=== PATIENT | female | born 1935 | race Hispanic/Latino ===

== ENCOUNTER 2018-01-19 16:46 | Inpatient (IN) | payer OTHER, MEDICARE ==
[2018-01-19] MEDS ORDERED: NACL 0.9% 500 ML 500 ML IV ONE (17:03)
[2018-01-19] MEDS ORDERED: KETALAR IV ONE (17:03)
[2018-01-19] MEDS ORDERED: ZEMURON IV ONE ×2 (17:05→17:08)
[2018-01-19] MEDS ORDERED: KETALAR ONE (17:05)
[2018-01-19] MEDS ORDERED: NACL 0.9% 1000 ML IV ONE ×2 (17:07→21:00)
[2018-01-19] MEDS ORDERED: D50W (25GM) Syringe IV ONE (17:21)
[2018-01-19] MEDS ORDERED: D50W (25GM) Vial IV ONE (17:26)
[2018-01-19] MEDS ORDERED: SUBLIMAZE IV ONE (17:33)
--- NOTE | 2018-01-19 17:36 | Emergency Department Report ---
ED General Adult HPI - General Chief complaint: Altered Mental Status Stated complaint: AMS Time Seen by Provider: 01/19/18 17:30 Source: EMS (ems notes not available at time of chart dictation. Verbal report received from EMS), RN notes reviewed, old records reviewed Mode of arrival: Stretcher Limitations: Altered Mental Status, Physical Limitation - History of Present Illness Initial comments: This is an 82-year-old female. She is previously unknown to this provider. Past medical history includes functional quadriplegia, diabetes, hypertension, high cholesterol, renal insufficiency, symptom of an appropriate antibiotic hormone secretion, rhabdomyolysis. Recently admitted to this hospital for colitis and pneumonia. Was discharged with Levaquin and metronidazole. Patient is brought to the hospital today by EMS for weakness and not breathing. EMS reported that the patient was breathing agonally in the field, and patient also was hypoglycemic. Patient received bag valve mask ventilation and oral airway. Upon arrival to the ER, the patient was obtunded and not protecting her airway. An emergent right sided external jugular IV was placed by myself, Accu-Chek was less than 40, patient given 1 amp of D50, still altered , and therefore intubated emergently for airway protection using rapid sequence techniques. Patient also hypotensive initially, blood pressure in the 70s, and required emergent administrative consent for central line placement which was performed using ultrasound guidance. No advanced directives were available. Patient will be treated along with sepsis pathway, she'll be started empirically on vancomycin and cefepime. She will also be started empirically on appropriate bolus of IV fluids, and she' ll be ventilated with a lung protective strategy. The critical care physician, Dr. Fried was informed, and he will follow in consultation. As a fourth generation cephalosporin, cefepime is structurally dissimilar to penicillin or first generation cephalosporin, and is statistically unlikely to induce anaphylaxis. -: unknown Consistency: constant Improves with: none Worsens with: none Associated Symptoms: confusion, weakness - Related Data Home Medications Medication Instructions Recorded Confirmed Last Taken Cholecalciferol (Vitamin D3) 50,000 unit PO QMONTH 08/07/13 12/11/17 07/13/13 [Vitamin D3] Metformin HCl [metFORMIN ER] 500 mg PO DAILY 08/07/13 12/11/17 08/07/13 08:00 Ranitidine HCl [Zantac] 150 mg PO BID 08/07/13 12/11/17 Unknown Previous Rx's Medication Instructions Recorded Last Taken Type Acetaminophen [Acetaminophen TAB] 650 mg PO Q4H PRN #30 tablet 12/15/17 Unknown Rx Aspirin [Aspirin TAB] 325 mg PO DAILY #30 12/15/17 Unknown Rx Cyanocobalamin (Vitamin B-12) 1,000 mcg PO DAILY #30 12/15/17 Unknown Rx [Vitamin B-12] Levofloxacin [Levaquin TAB] 500 mg PO QDAY #7 tablet 12/15/17 Unknown Rx Loratadine [Claritin] 10 mg PO DAILY #30 12/15/17 Unknown Rx Mometasone Furoate [Nasonex] 2 spray NS DAILY #1 unit 12/15/17 Unknown Rx Simvastatin [Zocor TAB] 40 mg PO QHS #30 12/15/17 Unknown Rx metroNIDAZOLE [Flagyl TAB] 500 mg PO Q8HR #56 tablet 12/15/17 Unknown Rx Allergies Allergy/AdvReac Type Severity Reaction Status Date / Time Penicillins Allergy Anaphylaxis Verified 08/07/13 18:32 sulfamethoxazole Allergy Unknown Verified 10/30/13 04:34 [From Bactrim] trimethoprim [From Bactrim] Allergy Unknown Verified 10/30/13 04:34 ED Review of Systems ROS: Stated complaint: AMS Other details as noted in HPI Comment: Unobtainable due to pts medical conditions ED Past Medical Hx - Past Medical History Hx Hypertension: Yes Hx Diabetes: Yes Hx Arthritis: Yes - Surgical History Hx Cholecystectomy: Yes Additional Surgical History: ABD hernia repair, hysterectomy - Social History Smoking Status: Unknown if ever smoked Substance Use Type: None - Medications Home Medications: Home Medications Medication Instructions Recorded Confirmed Last Taken Type Cholecalciferol (Vitamin D3) 50,000 unit PO QMONTH 08/07/13 12/11/17 07/13/13 History [Vitamin D3] Metformin HCl [metFORMIN ER] 500 mg PO DAILY 08/07/13 12/11/17 08/07/13 08:00 History Ranitidine HCl [Zantac] 150 mg PO BID 08/07/13 12/11/17 Unknown History Acetaminophen [Acetaminophen TAB] 650 mg PO Q4H PRN #30 tablet 12/15/17 Unknown Rx Aspirin [Aspirin TAB] 325 mg PO DAILY #30 12/15/17 12/11/17 Unknown Rx Cyanocobalamin (Vitamin B-12) 1,000 mcg PO DAILY #30 12/15/17 12/11/17 Unknown Rx [Vitamin B-12] Levofloxacin [Levaquin TAB] 500 mg PO QDAY #7 tablet 12/15/17 Unknown Rx Loratadine [Claritin] 10 mg PO DAILY #30 12/15/17 12/11/17 Unknown Rx Mometasone Furoate [Nasonex] 2 spray NS DAILY #1 unit 12/15/17 12/11/17 Unknown Rx Simvastatin [Zocor TAB] 40 mg PO QHS #30 12/15/17 12/11/17 Unknown Rx metroNIDAZOLE [Flagyl TAB] 500 mg PO Q8HR #56 tablet 12/15/17 Unknown Rx ED Physical Exam - General Limitations: Altered Mental Status, Physical Limitation, Other General appearance: obtunded - Eye Eye exam: Absent: nystagmus - ENT ENT exam: Present: mucous membranes dry - Neck Neck exam: Present: normal inspection - Respiratory Respiratory exam: Present: respiratory distress, rhonchi - Cardiovascular Cardiovascular Exam: Present: normal rhythm, tachycardia - GI/Abdominal GI/Abdominal exam: Present: soft, other (scaphoid abdomen is noted.). Absent: distended, tenderness, guarding, rebound, rigid - Rectal Rectal exam: Present: other (sacral ulcers noted) - Extremities Exam Extremities exam: Present: other (edema noted to the bilateral upper extremities. Calcaneal ulcers noted. Ecchymosis noted on the upper extremities ). Absent: normal inspection - Back Exam Back exam: Absent: paraspinal tenderness - Neurological Exam Neurological exam: Present: altered - Psychiatric Psychiatric exam: Present: other (patient nonverbal) - Skin Skin exam: Present: ecchymosis ED Course Vital Signs 01/19/18 01/19/18 01/19/18 16:53 16:59 17:00 Temperature Pulse Rate 126 H 119 H Respiratory 12 14 Rate Blood Pressure 118/97 73/37 73/37 O2 Sat by Pulse 80 L 93 Oximetry 01/19/18 01/19/18 01/19/18 17:12 17:15 17:16 Temperature Pulse Rate 97 H 110 H Respiratory 16 14 Rate Blood Pressure 44/20 O2 Sat by Pulse Oximetry 01/19/18 01/19/18 01/19/18 17:23 17:30 17:45 Temperature Pulse Rate 105 H 107 H 109 H Respiratory 14 13 Rate Blood Pressure 52/25 52/25 52/25 O2 Sat by Pulse 100 100 Oximetry 01/19/18 01/19/18 01/19/18 17:55 18:00 18:15 Temperature 99.1 F Pulse Rate 114 H 113 H Respiratory 14 14 Rate Blood Pressure 112/67 118/69 O2 Sat by Pulse Oximetry 01/19/18 01/19/18 01/19/18 18:30 18:45 19:00 Temperature Pulse Rate 113 H 101 H 106 H Respiratory 14 14 14 Rate Blood Pressure 114/71 87/42 95/48 O2 Sat by Pulse Oximetry 01/19/18 19:15 Temperature Pulse Rate 106 H Respiratory 14 Rate Blood Pressure 95/52 O2 Sat by Pulse Oximetry - Reevaluation(s) Reevaluation #1: 01/19/18 18:27 Found to be hypokalemic, hypomagnesemic, with elevated lactic acid. Electrolyte replacement has been ordered. Reevaluation #2: 01/19/18 18:40 Blood pressure improved with IV fluids, has not required norepinephrine as of yet. Dr LAMB ACCEPTS PATIENT TO THE MEDICAL SERVICE. - Central Line Placement Left IJ Consent Obtained: emergent situation Time Out Performed: Yes Patient Placed on Monitor/Pulse Ox: Yes MD Prep: mask, gown, gloves Central Line Prep: Chlorhexidine scrub, sterile drapes applied Ultrasound Used for Placement: Yes Central Line Lumen Inserted: triple Bloods Obtained for Lab: No Central Line Position: good blood return, all ports aspirated, flus, sutured in place with 2-0 Dressing Applied: sterile gauze/tape Patient Tolerated Procedure: well - EJ/Peripheral Line Neck R Time Out Performed: Yes Indications: nurses unable to establis Skin Cleansed in Sterile Fashion: Yes Size: 20 Dressing Placed: Tegaderm Patient Tolerated Procedure: well - Intubation Time Out Performed: Yes Sedative: Ketamine Mg Given: 100 Paralytic: Rocuronium Laryngoscope: Prince Size: 3 ET Tube Size: 7.5 Tube Secured Location: teeth Tube Placement Confirmation: visualized tube passing t Patient Tolerated Procedure: well Intubation Complications: none Additional Comments: Prior to intubation, patient is placed on a nasal cannula at 15 L/m. Received [id number] ventilation. Intubated using direct laryngoscopy and rapid sequence intubation with 1 attempts, no difficulty, no obvious complications. ED Medical Decision Making - Lab Data Result diagrams: 01/19/18 17:40 01/19/18 17:40 Vital Signs 01/19/18 01/19/18 01/19/18 16:53 16:59 17:00 Temperature Pulse Rate 126 H 119 H Respiratory 12 14 Rate Blood Pressure 118/97 73/37 73/37 O2 Sat by Pulse 80 L 93 Oximetry 01/19/18 01/19/18 01/19/18 17:12 17:15 17:16 Temperature Pulse Rate 97 H 110 H Respiratory 16 14 Rate Blood Pressure 44/20 O2 Sat by Pulse Oximetry 01/19/18 01/19/18 01/19/18 17:23 17:30 17:45 Temperature Pulse Rate 105 H 107 H 109 H Respiratory 14 13 Rate Blood Pressure 52/25 52/25 52/25 O2 Sat by Pulse 100 100 Oximetry 01/19/18 17:55 Temperature 99.1 F Pulse Rate Respiratory Rate Blood Pressure O2 Sat by Pulse Oximetry Lab Results 01/19/18 01/19/18 Range/Units 17:40 17:40 WBC 5.0 (4.5-11.0) K/mm3 RBC 2.91 L (3.65-5.03) M/mm3 Hgb 9.5 L (10.1-14.3) gm/dl Hct 29.1 L (30.3-42.9) % MCV 100 H (79-97) fl MCH 33 H (28-32) pg MCHC 33 (30-34) % RDW 17.0 H (13.2-15.2) % Plt Count 149 (140-440) K/mm3 Seg Neutrophils % Personal Vehicle Advisor VBG pH 7.447 H (7.320-7.420) - Radiology Data Radiology results: pending, report reviewed, image reviewed X-ray shows appropriate placement of endotracheal tube, central line, subacute rib fractures, lower lobe infiltrates. - Medical Decision Making Differential diagnosis, including but not limited to: Urinary tract infection, bacteremia, pneumonia, respiratory failure, functional quadriplegia, renal insufficiency Critical Care Time: Yes Critical care time in (mins) excluding proc time.: 60 Critical care attestation.: If time is entered above; I have spent that time in minutes in the direct care of this critically ill patient, excluding procedure time. ED Disposition Clinical Impression: Respiratory failure, SIRS (systemic inflammatory response syndrome), Dehydration, Hypomagnesemia, Hypokalemia Disposition: DC-09 OP ADMIT IP TO THIS HOSP Is pt being admited?: Yes Condition: Critical Referrals: PRIMARY CARE, [Primary Care Provider] - 3-5 Days
[2018-01-19 17:52] LABS: Hematocrit 29.1 % (30.3-42.9); Hemoglobin 9.5 gm/dl (10.1-14.3); Mean Corpuscular HGB Conc 33 % (30-34); Mean Corpuscular Hemoglobin 33 pg (28-32); Mean Corpuscular Volume 100 fl (79-97); Platelet Count 149 K/mm3 (140-440); Red Blood Count 2.91 M/mm3 (3.65-5.03)
[2018-01-19] MEDS ORDERED: fentaNYL DRIP Premix 2,000 MCG/100 ML BAG IV SCH (18:00)
[2018-01-19] MEDS ORDERED: VANCOMYCIN PHARMACY TO DOSE IV SCH ×2 (18:00→21:00)
[2018-01-19 18:10] LABS: Creatine Kinase MB 5.1 ng/mL (0.0-4.0)
[2018-01-19 18:11] LABS: INR 1.99 (0.87-1.13)
[2018-01-19 18:12] LABS: Alanine Aminotransferase 632 units/L (7-56); Albumin 1.5 g/dL (3.9-5); BUN/Creatinine Ratio 23; Blood Urea Nitrogen 21 mg/dL (7-17); Calcium 8.5 mg/dL (8.4-10.2); Hemolysis Index 7
[2018-01-19 18:24] LABS: ABG Base Excess 7.2 mmol/L (-2.0-3.0); ABG HCO3 31.3 mmol/L (20.0-26.0); ABG Methemoglobin 0.5 % (0.0-1.5); ABG Oxygen Saturation 99.6 % (95.0-99.0); ABG PCO2 42.4 mm Hg; ABG PH 7.486 pH Units (7.350-7.450)
[2018-01-19] MEDS ORDERED: MAGNESIUM SULFATE 2GM/50ML 2 GM/50 ML BAG IV ONE (18:25)
[2018-01-19 18:27] LABS: ABG PO2 420.1 mm Hg (80.0-90.0)
[2018-01-19 18:37] LABS: Chol/HDL Ratio 1.9 %
--- NOTE | 2018-01-19 18:53 | XRay Report ---
FINAL REPORT EXAM: XR CHEST 1V AP HISTORY: ett placement TECHNIQUE: Frontal supine portable chest x-ray was performed Comparison: 12/12, 10/23 FINDINGS: Patient is intubated with endotracheal tube tip approximately 2.8 centimeters above the kimo. Nasogastric tube is present with the tip at least in the region of the gastric body, not imaged. Left internal jugular central line is present with tip in the region of the brachiocephalic junction. Heart size is normal. There are multiple displaced right posterior rib fractures including through 8. There is bilateral basal consolidation and probable layering effusions. Possibly infiltrates. There is mild perihilar congestion suggestive of mild positive fluid balance. No pneumothorax is identified although the lung bases are clipped. The bones are osteopenic. IMPRESSION: Patient is intubated with endotracheal tube tip well above the kimo. Nasogastric tube is present with tip not imaged but at least in the gastric body. Left internal jugular central line tip projects at the brachiocephalic junction. Underlying pulmonary emphysema with mild interstitial edema/positive fluid balance. Bilateral basal consolidation/layering effusions and probable infiltrates. Multiple right age-indeterminate posterior lateral rib fractures 6--8 are offset, increased compared with the December 12 exam.
[2018-01-19] MEDS ORDERED: D5/0.45NS 1,000 ML IV SCH (19:00)
[2018-01-19] MEDS ORDERED: VANCOMYCIN/NS 1 GM/250 ML 1 GM/250 ML BAG IV ONE (19:00)
[2018-01-19 19:17] LABS: Bacteria,Urine 2+ /HPF (Negative); Bilirubin,Urine NEG (Negative); Blood,Urine SM (Negative); Color,Urine Amber (Yellow); Hyaline Casts,Urine 8 /LPF; Mucus,Urine 2+ /HPF; Protein,Urine <15 mg/dL mg/dL (Negative)
[2018-01-19 19:52] LABS: Total Cells Counted 100
[2018-01-19 19:53] LABS: Anisocytosis 1+; Basophils % (Manual) 0 % (0.0-1.8); Eosinophils % (Manual) 0 % (0.0-4.3); Platelet Estimate Consistent w Auto
[2018-01-19] MEDS: LEVOPHED DRIP 4 MG/NS 250 ML 4 MG/250 ML BAG IV SCH (20:18)
[2018-01-19] MEDS ORDERED: NACL 0.9% 1000 ML 1,000 ML ONE (20:30)
--- NOTE | 2018-01-19 20:31 | History and Physical Report ---
History of Present Illness Chief complaint: unresponsive History of present illness: 82 YO Female [facility] Resident with HTN, DM, HLD, SIADH, presents to ED for evaluation. Pt is stuporous on exam and unable to provide history. Pt history taken from medical record, ED Staff, and EMS. As per EMS, the patient was found to have agonal breathing in the field, as was transported to [facility] for further care and evaluation. Pt seen and evaluated in ED and found to be hypotensive with systolic BP in the 40's, secondary to Septic shock. Pt also found to have evidence of early shock liver, as well as elevated troponin which is suspected secondary to hypoperfusion. Pt found to be in acute respiratory failure. Pt intubated and placed on vent support. No further history is provided. Pt admitted to ICU. Pulmonary team consulted. Pt found to have poor prognosis. Past History Past Medical History: arthritis, diabetes, hypertension Past Surgical History: hysterectomy, hernia repair Social history: single. denies: smoking, alcohol abuse, prescription drug abuse Family history: no significant family history (reviewed) Medications and Allergies Allergies Allergy/AdvReac Type Severity Reaction Status Date / Time Penicillins Allergy Anaphylaxis Verified 08/07/13 18:32 sulfamethoxazole Allergy Unknown Verified 10/30/13 04:34 [From Bactrim] trimethoprim [From Bactrim] Allergy Unknown Verified 10/30/13 04:34 Home Medications Medication Instructions Recorded Confirmed Last Taken Type Cholecalciferol (Vitamin D3) 50,000 unit PO QMONTH 08/07/13 01/19/18 07/13/13 History [Vitamin D3] Ranitidine HCl [Zantac] 150 mg PO BID 08/07/13 01/19/18 Unknown History Aspirin [Aspirin TAB] 325 mg PO DAILY #30 12/15/17 01/19/18 Unknown Rx Cyanocobalamin (Vitamin B-12) 1,000 mcg PO DAILY #30 12/15/17 01/19/18 Unknown Rx [Vitamin B-12] Mometasone Furoate [Nasonex] 2 spray NS DAILY #1 unit 12/15/17 01/19/18 Unknown Rx Simvastatin [Zocor TAB] 40 mg PO QHS #30 12/15/17 01/19/18 Unknown Rx Acetaminophen [Tylenol] 650 mg PO Q4HR PRN 01/19/18 01/19/18 Unknown History Loratadine [Claritin] 10 mg PO QDAY 01/19/18 01/19/18 Unknown History Metformin HCl [Glucophage] 500 mg PO QDAY 01/19/18 01/19/18 Unknown History Active Meds: Active Medications Cefepime HCl 1 gm/ Sodium (Chloride) 20 mls @ 20 mls/10 min IV Q6HR RHINA; Protocol Fentanyl Citrate (Fentanyl Drip Premix) 2,000 mcg in 100 mls @ 2.948 mls/hr IV TITR RHINA; Protocol Norepinephrine (Levophed Drip 4 Mg/Ns 250 Ml) 4 mg in 250 mls @ 7.5 mls/hr IV TITR RHINA; Protocol Last Admin: 01/19/18 20:18 Dose: 2 mcg/min, 7.5 mls/hr Vancomycin HCl (Vancomycin/Ns 1 Gm/250 Ml) 1 gm in 250 mls @ 125 mls/hr IV ONCE ONE; Protocol Stop: 01/19/18 20:59 Dextrose/Sodium Chloride (D5/0.45ns) 1,000 mls @ 0 mls/hr IV DIRECT RHINA Last Admin: 01/19/18 18:46 Dose: 999 mls/hr Potassium Chloride (Kcl 20meq/100ml) 20 meq in 100 mls @ 100 mls/hr IV Q1H RHINA Stop: 01/19/18 22:59 Vancomycin HCl (Vancomycin Pharmacy To Dose) 1 each IV PKCONSULT RHINA Review of Systems ROS unobtainable: due to mental status Exam - Constitutional Vitals: Temp Pulse Resp BP Pulse Ox 99.1 F 106 H 14 95/52 100 01/19/18 17:55 01/19/18 19:15 01/19/18 19:15 01/19/18 19:15 01/19/18 17:30 General appearance: Present: severe distress, disheveled - EENT Eyes: Present: mydriasis ENT: poor dentition - Respiratory Respiratory effort: labored Respiratory: bilateral: diminished, rhonchi - Cardiovascular Rhythm: other (tacbhycardia) Heart Sounds: Present: S1 & S2. Absent: rub, click - Extremities Extremities: pulses symmetrical, No edema Peripheral Pulses: abnormal (capillary refill greater than 3.6 seconds) - Abdominal General gastrointestinal: Present: soft, non-tender, non-distended, normal bowel sounds Female genitourinary: Present: normal - Integumentary Integumentary: Present: clear, dry, pale, decreased turgor - Musculoskeletal Musculoskeletal: generalized weakness - Psychiatric Psychiatric: no intact judgment & insight, no memory intact - Neurologic Neurologic: no gait normal Results - Labs CBC & Chem 7: 01/19/18 17:40 01/19/18 17:40 Labs: Abnormal lab results 01/19/18 01/19/18 01/19/18 Range/Units 17:40 17:40 17:40 RBC 2.91 L (3.65-5.03) M/mm3 Hgb 9.5 L (10.1-14.3) gm/dl Hct 29.1 L (30.3-42.9) % MCV 100 H (79-97) fl MCH 33 H (28-32) pg RDW 17.0 H (13.2-15.2) % Seg Neuts % (Manual) 95.0 H (40.0-70.0) % Lymphocytes % (Manual) 3.0 L (13.4-35.0) % Lymphocytes # (Manual) 0.2 L (1.2-5.4) K/mm3 PT 23.9 H (12.2-14.9) Sec. INR 1.99 H (0.87-1.13) ABG pH (7.350-7.450) pH Units ABG pO2 (80.0-90.0) mm Hg ABG HCO3 (20.0-26.0) mmol/L ABG O2 Saturation (95.0-99.0) % ABG Base Excess (-2.0-3.0) mmol/L ABG Hemoglobin (12.0-16.0) gm/dl VBG pH (7.320-7.420) Potassium 2.7 L* (3.6-5.0) mmol/L Chloride 90.1 L (98-107) mmol/L Carbon Dioxide 32 H (22-30) mmol/L BUN 21 H (7-17) mg/dL Glucose 142 H (65-100) mg/dL POC Glucose (70-105) Lactic Acid (0.7-2.0) mmol/L Magnesium (1.7-2.3) mg/dL Total Bilirubin 1.30 H (0.1-1.2) mg/dL AST 1592 H (5-40) units/L ALT 632 H (7-56) units/L CK-MB (CK-2) (0.0-4.0) ng/mL CK-MB (CK-2) Rel Index (0-4) Troponin T (0.00-0.029) ng/mL Total Protein 3.5 L (6.3-8.2) g/dL Albumin 1.5 L (3.9-5) g/dL Cholesterol (50-199) mg/dL LDL Cholesterol Direct (50-130) mg/dL HDL Cholesterol (40-59) mg/dL Urine WBC (Auto) (0.0-6.0) /HPF 01/19/18 01/19/18 01/19/18 Range/Units 17:40 17:40 17:40 RBC (3.65-5.03) M/mm3 Hgb (10.1-14.3) gm/dl Hct (30.3-42.9) % MCV (79-97) fl MCH (28-32) pg RDW (13.2-15.2) % Seg Neuts % (Manual) (40.0-70.0) % Lymphocytes % (Manual) (13.4-35.0) % Lymphocytes # (Manual) (1.2-5.4) K/mm3 PT (12.2-14.9) Sec. INR (0.87-1.13) ABG pH (7.350-7.450) pH Units ABG pO2 (80.0-90.0) mm Hg ABG HCO3 (20.0-26.0) mmol/L ABG O2 Saturation (95.0-99.0) % ABG Base Excess (-2.0-3.0) mmol/L ABG Hemoglobin (12.0-16.0) gm/dl VBG pH 7.447 H (7.320-7.420) Potassium (3.6-5.0) mmol/L Chloride (98-107) mmol/L Carbon Dioxide (22-30) mmol/L BUN (7-17) mg/dL Glucose (65-100) mg/dL POC Glucose (70-105) Lactic Acid 4.50 H* (0.7-2.0) mmol/L Magnesium (1.7-2.3) mg/dL Total Bilirubin (0.1-1.2) mg/dL AST (5-40) units/L ALT (7-56) units/L CK-MB (CK-2) 5.1 H (0.0-4.0) ng/mL CK-MB (CK-2) Rel Index 4.9 H (0-4) Troponin T 0.187 H* (0.00-0.029) ng/mL Total Protein (6.3-8.2) g/dL Albumin (3.9-5) g/dL Cholesterol 42 L (50-199) mg/dL LDL Cholesterol Direct 5 L (50-130) mg/dL HDL Cholesterol 22 L (40-59) mg/dL Urine WBC (Auto) (0.0-6.0) /HPF 01/19/18 01/19/18 01/19/18 Range/Units 17:55 18:10 19:00 RBC (3.65-5.03) M/mm3 Hgb (10.1-14.3) gm/dl Hct (30.3-42.9) % MCV (79-97) fl MCH (28-32) pg RDW (13.2-15.2) % Seg Neuts % (Manual) (40.0-70.0) % Lymphocytes % (Manual) (13.4-35.0) % Lymphocytes # (Manual) (1.2-5.4) K/mm3 PT (12.2-14.9) Sec. INR (0.87-1.13) ABG pH 7.486 H (7.350-7.450) pH Units ABG pO2 420.1 H (80.0-90.0) mm Hg ABG HCO3 31.3 H (20.0-26.0) mmol/L ABG O2 Saturation 99.6 H (95.0-99.0) % ABG Base Excess 7.2 H (-2.0-3.0) mmol/L ABG Hemoglobin 11.0 L (12.0-16.0) gm/dl VBG pH (7.320-7.420) Potassium (3.6-5.0) mmol/L Chloride (98-107) mmol/L Carbon Dioxide (22-30) mmol/L BUN (7-17) mg/dL Glucose (65-100) mg/dL POC Glucose 114 H (70-105) Lactic Acid (0.7-2.0) mmol/L Magnesium (1.7-2.3) mg/dL Total Bilirubin (0.1-1.2) mg/dL AST (5-40) units/L ALT (7-56) units/L CK-MB (CK-2) (0.0-4.0) ng/mL CK-MB (CK-2) Rel Index (0-4) Troponin T (0.00-0.029) ng/mL Total Protein (6.3-8.2) g/dL Albumin (3.9-5) g/dL Cholesterol (50-199) mg/dL LDL Cholesterol Direct (50-130) mg/dL HDL Cholesterol (40-59) mg/dL Urine WBC (Auto) 44.0 H (0.0-6.0) /HPF 01/19/18 Range/Units Unknown RBC (3.65-5.03) M/mm3 Hgb (10.1-14.3) gm/dl Hct (30.3-42.9) % MCV (79-97) fl MCH (28-32) pg RDW (13.2-15.2) % Seg Neuts % (Manual) (40.0-70.0) % Lymphocytes % (Manual) (13.4-35.0) % Lymphocytes # (Manual) (1.2-5.4) K/mm3 PT (12.2-14.9) Sec. INR (0.87-1.13) ABG pH (7.350-7.450) pH Units ABG pO2 (80.0-90.0) mm Hg ABG HCO3 (20.0-26.0) mmol/L ABG O2 Saturation (95.0-99.0) % ABG Base Excess (-2.0-3.0) mmol/L ABG Hemoglobin (12.0-16.0) gm/dl VBG pH (7.320-7.420) Potassium (3.6-5.0) mmol/L Chloride (98-107) mmol/L Carbon Dioxide (22-30) mmol/L BUN (7-17) mg/dL Glucose (65-100) mg/dL POC Glucose (70-105) Lactic Acid (0.7-2.0) mmol/L Magnesium 0.20 L* (1.7-2.3) mg/dL Total Bilirubin (0.1-1.2) mg/dL AST (5-40) units/L ALT (7-56) units/L CK-MB (CK-2) (0.0-4.0) ng/mL CK-MB (CK-2) Rel Index (0-4) Troponin T (0.00-0.029) ng/mL Total Protein (6.3-8.2) g/dL Albumin (3.9-5) g/dL Cholesterol (50-199) mg/dL LDL Cholesterol Direct (50-130) mg/dL HDL Cholesterol (40-59) mg/dL Urine WBC (Auto) (0.0-6.0) /HPF Assessment and Plan - Patient Problems (1) Sepsis Current Visit: Yes Status: Acute Plan to address problem: IV antibiotic therapy, monitor uop q shift, IV pressor support, blood cultures, urinalysis, Chest X ray, serial lactic acid level The high probability of a clinically significant, sudden or life threatening deterioration of the [cardiac, renal, respiratory] system(s) required my full and direct attention, intervention and personal management. The aggregate critical care time was [65] minutes. This time is in addition to time spent performing reported procedures but includes the following: [x] Data Review and interpretation [x] Patient assessment and monitoring of vital signs [x] Documentation [x] Medication orders and management (2) UTI (urinary tract infection) Current Visit: Yes Status: Acute Qualifiers: Encounter type: initial encounter Plan to address problem: IV antibiotics, urinalysis, supportive care. (3) Acute respiratory failure Current Visit: Yes Status: Acute Qualifiers: Respiratory failure complication: hypoxia Qualified Code(s): J96.01 - Acute respiratory failure with hypoxia Plan to address problem: Pt intubated, on vent support, supplemental oxygen, nebulizer therapy, wean vent as tolerated, daily SBT, sedation holiday, Pulmonary consulted. (4) Shock liver Current Visit: Yes Status: Acute Plan to address problem: Treat sepsis, IVF resuscitation, repeat LFT in AM. (5) Encephalopathy Current Visit: Yes Status: Acute Plan to address problem: Toxic Encephalopathy: IVF resuscitation, treat sepsis, CT head when medically stable, neuro checks (6) DVT prophylaxis Current Visit: Yes Status: Acute
[2018-01-19] MEDS ORDERED: SODIUM CHLORIDE FLUSH SYRINGE 10 ML IV PRN (20:32)
[2018-01-19] MEDS ORDERED: VANCOMYCIN VIAL IV ONE (20:51)
[2018-01-19] MEDS: MAXIPIME 1 GM in NACL 0.9% 20 ML IV SCH (20:54)
[2018-01-19] MEDS ORDERED: VANCOMYCIN 1,250 MG in NACL 0.9% 250ML 250 ML IV ONE (22:00)
[2018-01-19] MEDS: SODIUM CHLORIDE FLUSH SYRINGE 10 ML IV SCH (22:53)
[2018-01-20] MEDS ORDERED: NACL 0.9% 1000 ML 0 ML ONE (00:12)
[2018-01-20] MEDS: KCL 20MEQ/100ML 20 MEQ/100 ML BAG IV SCH ×3 (00:20→03:25)
[2018-01-20] MEDS: SODIUM CHLORIDE FLUSH SYRINGE 10 ML IV SCH ×3 (01:56→21:49)
[2018-01-20] MEDS: MAXIPIME 1 GM in NACL 0.9% 20 ML IV SCH ×2 (02:00→05:49)
[2018-01-20 04:10] LABS: ABG Base Excess 0.5 mmol/L (-2.0-3.0); ABG HCO3 22.5 mmol/L (20.0-26.0); ABG Methemoglobin 0.4 % (0.0-1.5); ABG Oxygen Saturation 98.8 % (95.0-99.0); ABG PCO2 29.1 mm Hg; ABG PH 7.507 pH Units (7.350-7.450); ABG PO2 133.5 mm Hg (80.0-90.0)
[2018-01-20 04:43] LABS: Hematocrit 45.2 % (30.3-42.9); Hemoglobin 14.7 gm/dl (10.1-14.3); Mean Corpuscular HGB Conc 33 % (30-34); Mean Corpuscular Hemoglobin 33 pg (28-32); Mean Corpuscular Volume 101 fl (79-97); Red Blood Count 4.48 M/mm3 (3.65-5.03); Red Cell Distribution Width 17.3 % (13.2-15.2)
[2018-01-20 04:52] LABS: Platelet Count 73 K/mm3 (140-440)
[2018-01-20 05:00] LABS: BUN/Creatinine Ratio 26; Blood Urea Nitrogen 18 mg/dL (7-17); Calcium 7.8 mg/dL (8.4-10.2); Hemolysis Index 57
[2018-01-20 05:13] LABS: Alanine Aminotransferase 970 units/L (7-56)
[2018-01-20 06:06] LABS: Anisocytosis 1+; Band Neutrophils # (Manual) 0.3 K/mm3; Basophils % (Manual) 0 % (0.0-1.8); Eosinophils % (Manual) 0 % (0.0-4.3); Monocytes % (Manual) 0 % (0.0-7.3); Platelet Estimate Appears Decreased; Total Cells Counted 100
[2018-01-20] MEDS: LEVOPHED DRIP 4 MG/NS 250 ML 4 MG/250 ML BAG IV SCH ×5 (06:28→21:52)
--- NOTE | 2018-01-20 08:54 | Consultation ---
History of Present Illness Consult date: 01/20/18 Requesting physician: EVELYN HODGES Reason for consult: hypoxemia History of present illness: Patient is intubated, so all history comes from chart. Brought in from half-way secondary to altered mental status, hypotension and hypoxemia. Intubated in the ED and then central line placed there as well. CXR shows hyperinflation with left IJ placement. Bibasilar air space disease is also present but I cannot see a definite infiltrate. Patient had no white count on admission, did have a normal temp on admission but has since become hypothermic. Started on Vanc and Cefepime. UA is dirty, blood cultures are still pending. Patient is awake but not following commands. I do not know her baseline mental state. No family present at bedside and per IMS, multiple attempts were made to next of kin but no success. She is still on levophed at 15 mcgs. Past History Past Medical History: arthritis, diabetes, hypertension Past Surgical History: hysterectomy, hernia repair Social history: single. denies: smoking, alcohol abuse, prescription drug abuse Family history: no significant family history (reviewed) Medications and Allergies Allergies Allergy/AdvReac Type Severity Reaction Status Date / Time Penicillins Allergy Anaphylaxis Verified 08/07/13 18:32 sulfamethoxazole Allergy Unknown Verified 10/30/13 04:34 [From Bactrim] trimethoprim [From Bactrim] Allergy Unknown Verified 10/30/13 04:34 Home Medications Medication Instructions Recorded Confirmed Last Taken Type Cholecalciferol (Vitamin D3) 50,000 unit PO QMONTH 08/07/13 01/19/18 07/13/13 History [Vitamin D3] Ranitidine HCl [Zantac] 150 mg PO BID 08/07/13 01/19/18 Unknown History Aspirin [Aspirin TAB] 325 mg PO DAILY #30 12/15/17 01/19/18 Unknown Rx Cyanocobalamin (Vitamin B-12) 1,000 mcg PO DAILY #30 12/15/17 01/19/18 Unknown Rx [Vitamin B-12] Mometasone Furoate [Nasonex] 2 spray NS DAILY #1 unit 12/15/17 01/19/18 Unknown Rx Simvastatin [Zocor TAB] 40 mg PO QHS #30 12/15/17 01/19/18 Unknown Rx Acetaminophen [Tylenol] 650 mg PO Q4HR PRN 01/19/18 01/19/18 Unknown History Loratadine [Claritin] 10 mg PO QDAY 01/19/18 01/19/18 Unknown History Metformin HCl [Glucophage] 500 mg PO QDAY 01/19/18 01/19/18 Unknown History Active Meds: Active Medications Famotidine (Pepcid) 20 mg IV DAILY RHINA Norepinephrine (Levophed Drip 4 Mg/Ns 250 Ml) 4 mg in 250 mls @ 7.5 mls/hr IV TITR RHINA; Protocol Last Admin: 01/20/18 06:28 Dose: 12 mcg/min, 45 mls/hr Dextrose/Sodium Chloride (D5/0.45ns) 1,000 mls @ 0 mls/hr IV DIRECT RHINA Last Admin: 01/19/18 18:46 Dose: 999 mls/hr Cefepime HCl 1 gm/ Sodium (Chloride) 20 mls @ 20 mls/10 min IV Q12HR RHINA; Protocol Vancomycin HCl (Vancomycin/Ns 1 Gm/250 Ml) 1 gm in 250 mls @ 166.667 mls/hr IV Q24HR RHINA Sodium Chloride (Nacl 0.9% 1000 Ml) 1,000 mls @ 999 mls/hr IV BOLUS ONE Stop: 01/20/18 09:48 Sodium Chloride (Sodium Chloride Flush Syringe 10 Ml) 10 ml IV BID RHINA Last Admin: 01/20/18 01:56 Dose: 10 ml Sodium Chloride (Sodium Chloride Flush Syringe 10 Ml) 10 ml IV PRN PRN PRN Reason: LINE FLUSH Last Admin: 01/20/18 04:22 Dose: 10 ml Vancomycin HCl (Vancomycin Pharmacy To Dose) 1 each IV PKCONSULT [facility] Review of Systems ROS unobtainable: due to endotracheal tube, due to mental status Physical Examination Vital signs: Vital Signs BP 118/97 01/19/18 16:53 General appearance: alert, appears uncomfortable Eyes: non-icteric ENT: other (orally intubated, not on sedation) Neck: supple, no JVD Effort: mildly labored Ascultation: Bilateral: diminished breath sounds, rhonchi Percussion: Bilateral: not dull Tactile fremitus: Bilateral: normal Cardiovascular: other (tachycardia) Gastrointestinal: normoactive bowel sounds, soft Extremities: no edema Musculoskeletal: other (moving all ext but not purposeful movements) unable to assess Results - Laboratory Findings CBC and BMP: 01/20/18 04:02 01/20/18 04:02 ABG ABG pH 7.507 pH Units (7.350-7.450) H 01/20/18 03:50 ABG pCO2 29.1 mm Hg 01/20/18 03:50 ABG pO2 133.5 mm Hg (80.0-90.0) H 01/20/18 03:50 ABG O2 Saturation 98.8 % (95.0-99.0) 01/20/18 03:50 PT/INR, D-dimer PT 23.9 Sec. (12.2-14.9) H 01/19/18 17:40 INR 1.99 (0.87-1.13) H 01/19/18 17:40 Abnormal lab findings: Abnormal Labs 01/19/18 01/19/18 01/19/18 17:40 17:40 17:40 RBC 2.91 L Hgb 9.5 L Hct 29.1 L MCV 100 H MCH 33 H RDW 17.0 H Plt Count Seg Neuts % (Manual) 95.0 H Lymphocytes % (Manual) 3.0 L Lymphocytes # (Manual) 0.2 L PT 23.9 H INR 1.99 H ABG pH ABG pO2 ABG HCO3 ABG O2 Saturation ABG Base Excess ABG Hemoglobin VBG pH Sodium Potassium 2.7 L* Chloride 90.1 L Carbon Dioxide 32 H BUN 21 H Glucose 142 H POC Glucose Lactic Acid Calcium Magnesium Total Bilirubin 1.30 H AST 1592 H ALT 632 H Alkaline Phosphatase CK-MB (CK-2) CK-MB (CK-2) Rel Index Troponin T Total Protein 3.5 L Albumin 1.5 L Cholesterol LDL Cholesterol Direct HDL Cholesterol Urine WBC (Auto) 01/19/18 01/19/18 01/19/18 17:40 17:40 17:40 RBC Hgb Hct MCV MCH RDW Plt Count Seg Neuts % (Manual) Lymphocytes % (Manual) Lymphocytes # (Manual) PT INR ABG pH ABG pO2 ABG HCO3 ABG O2 Saturation ABG Base Excess ABG Hemoglobin VBG pH 7.447 H Sodium Potassium Chloride Carbon Dioxide BUN Glucose POC Glucose Lactic Acid 4.50 H* Calcium Magnesium Total Bilirubin AST ALT Alkaline Phosphatase CK-MB (CK-2) 5.1 H CK-MB (CK-2) Rel Index 4.9 H Troponin T 0.187 H* Total Protein Albumin Cholesterol 42 L LDL Cholesterol Direct 5 L HDL Cholesterol 22 L Urine WBC (Auto) 01/19/18 01/19/18 01/19/18 17:55 18:10 19:00 RBC Hgb Hct MCV MCH RDW Plt Count Seg Neuts % (Manual) Lymphocytes % (Manual) Lymphocytes # (Manual) PT INR ABG pH 7.486 H ABG pO2 420.1 H ABG HCO3 31.3 H ABG O2 Saturation 99.6 H ABG Base Excess 7.2 H ABG Hemoglobin 11.0 L VBG pH Sodium Potassium Chloride Carbon Dioxide BUN Glucose POC Glucose 114 H Lactic Acid Calcium Magnesium Total Bilirubin AST ALT Alkaline Phosphatase CK-MB (CK-2) CK-MB (CK-2) Rel Index Troponin T Total Protein Albumin Cholesterol LDL Cholesterol Direct HDL Cholesterol Urine WBC (Auto) 44.0 H 01/19/18 01/19/18 01/19/18 19:47 21:30 Unknown RBC Hgb Hct MCV MCH RDW Plt Count Seg Neuts % (Manual) Lymphocytes % (Manual) Lymphocytes # (Manual) PT INR ABG pH ABG pO2 ABG HCO3 ABG O2 Saturation ABG Base Excess ABG Hemoglobin VBG pH Sodium Potassium Chloride Carbon Dioxide BUN Glucose POC Glucose Lactic Acid 3.60 H* 3.60 H* Calcium Magnesium 0.20 L* Total Bilirubin AST ALT Alkaline Phosphatase CK-MB (CK-2) CK-MB (CK-2) Rel Index Troponin T Total Protein Albumin Cholesterol LDL Cholesterol Direct HDL Cholesterol Urine WBC (Auto) 01/20/18 01/20/18 01/20/18 03:50 04:02 04:02 RBC Hgb 14.7 H D Hct 45.2 H D MCV 101 H MCH 33 H RDW 17.3 H Plt Count 73 L Seg Neuts % (Manual) 89.0 H Lymphocytes % (Manual) 6.0 L Lymphocytes # (Manual) 0.3 L PT INR ABG pH 7.507 H ABG pO2 133.5 H ABG HCO3 ABG O2 Saturation ABG Base Excess ABG Hemoglobin VBG pH Sodium 136 L Potassium Chloride 95.2 L Carbon Dioxide BUN 18 H Glucose 189 H POC Glucose Lactic Acid Calcium 7.8 L Magnesium Total Bilirubin 2.00 H AST 1717 H ALT 970 H Alkaline Phosphatase 169 H CK-MB (CK-2) CK-MB (CK-2) Rel Index Troponin T Total Protein 4.6 L D Albumin 2.0 L Cholesterol LDL Cholesterol Direct HDL Cholesterol Urine WBC (Auto) 01/20/18 01/20/18 04:02 Unknown RBC Hgb Hct MCV MCH RDW Plt Count Seg Neuts % (Manual) Lymphocytes % (Manual) Lymphocytes # (Manual) PT INR ABG pH ABG pO2 ABG HCO3 ABG O2 Saturation ABG Base Excess ABG Hemoglobin VBG pH Sodium Potassium Chloride Carbon Dioxide BUN Glucose POC Glucose Lactic Acid 4.10 H* 3.70 H* Calcium Magnesium Total Bilirubin AST ALT Alkaline Phosphatase CK-MB (CK-2) CK-MB (CK-2) Rel Index Troponin T Total Protein Albumin Cholesterol LDL Cholesterol Direct HDL Cholesterol Urine WBC (Auto) - Diagnostic Findings Chest x-ray: image reviewed Assessment and Plan 82 y/o female with acute hypoxemic respiratory failure, thought secondary to altered mental state, secondary to sepsis with shock, possible source being urine now with thrombocytopenia and hypothermia and shock liver. 1. Pulm- Patient over ventilated as she is now awake and breathing over the vent. FiO2 at minimal but mental status does not appear to be safe for patient extubation just yet. 2. CV- Tachycardia and persistent hypotension. Most likely supply and demand and volume depletion from sepsis. Will given an additional liter bolus now. Will wean pressors for MAPS >65. Will also check CVP to assess fluid status. 3. GI- shock liver, secondary to hypotension. Will continue fluid resuscitation and recheck serial labs. 4. ID- Dirty UA, could be cause of sepsis with shock. Currently on broad spec abx, therapy. May need to re-evaluate this. Continue serial lactic acids 5. Heme- unsure of this rapid drop in platelet therapy. Could be sepsis related vs medication effect (pepcid) vs lab error. Will repeat CBC now. 6. Overall prognosis is guarded to poor. Will attempt to speak with family again today. CCT 31 minutes.
[2018-01-20] MEDS ORDERED: NACL 0.9% 1000 ML 1,000 ML IV ONE (09:00)
[2018-01-20 09:27] LABS: Hematocrit 38.6 % (30.3-42.9); Hemoglobin 12.5 gm/dl (10.1-14.3); Mean Corpuscular HGB Conc 33 % (30-34); Mean Corpuscular Hemoglobin 32 pg (28-32); Mean Corpuscular Volume 100 fl (79-97); Platelet Count 171 K/mm3 (140-440); Red Blood Count 3.88 M/mm3 (3.65-5.03); Red Cell Distribution Width 17.1 % (13.2-15.2)
[2018-01-20] MEDS ORDERED: VANCOMYCIN/NS 1 GM/250 ML 1 GM/250 ML BAG IV SCH (10:00)
[2018-01-20] MEDS: PEPCID IV SCH (11:50)
[2018-01-20] MEDS: HEPARIN SUB-Q SCH ×2 (13:51→21:49)
[2018-01-20] MEDS ORDERED: AZACTAM 1,000 MG in NACL 0.9% 20 ML IV SCH (14:00)
[2018-01-20] MEDS: AZACTAM 1,000 MG in NACL 0.9% 20 ML IV SCH ×2 (14:15→21:49)
[2018-01-20] MEDS ORDERED: VANCOMYCIN/0.45 NS 1 GM/250 ML 1 GM/250 ML BAG IV SCH (15:00)
[2018-01-20] MEDS: NACL 0.9% 1000 ML 1,000 ML IV SCH ×7 (15:35→22:45)
--- NOTE | 2018-01-20 18:48 | Progress Note ---
Assessment and Plan Assessment and plan: 82 YO Female [facility] Resident with HTN, DM, HLD, SIADH, presents to ED for evaluation. Pt is stuporous on exam and unable to provide history. Pt history taken from medical record, ED Staff, and EMS. As per EMS, the patient was found to have agonal breathing in the field, as was transported to [facility] for further care and evaluation. Pt seen and evaluated in ED and found to be hypotensive with systolic BP in the 40's, secondary to Septic shock. Pt also found to have evidence of early shock liver, as well as elevated troponin which is suspected secondary to hypoperfusion. Pt found to be in acute respiratory failure. Pt intubated and placed on vent support. No further history is provided. Pt admitted to ICU. Pulmonary team consulted. Pt found to have poor prognosis. Septic shock - Patient is on pressors, IV azithromycin, and vancomycin Acute hypoxic respiratory failure, patient was not able to take care of her otherwise - Patient is intubated and on mechanical ventilation - Pulmonary arteries following Acute metabolic encephalopathy - don't know base line Patient has very poor prognosis Disposition - Continue ICU care History Interval history: Patient was seen and evaluated this morning, patient was intubated in the mechanical ventilation, patient is non-communicative. No family member was in the room to discuss the management plan. Hospitalist Physical - Physical exam Narrative exam: Patient is intubated and on mechanical ventilation The patient appeared well nourished and normally developed. Vital signs as documented. Head exam is unremarkable. No scleral icterus . Neck is without jugular venous distension, thyromegaly, or carotid bruits. Lungs are clear to auscultation. Cardiac exam reveals regular rate and Rhythm. First and second heart sounds normal. No murmurs, rubs or gallops. Abdominal exam reveals normal bowel sounds, no masses, no organomegaly and no aortic enlargement. Extremities are nonedematous and both femoral and pedal pulses are normal. 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 - Constitutional Vitals: Temp Pulse Resp BP Pulse Ox 97.4 F L 112 H 15 112/60 92 01/20/18 16:00 01/20/18 18:21 01/20/18 18:21 01/20/18 18:21 01/20/18 18:21 General appearance: Present: severe distress, disheveled Results - Labs CBC & Chem 7: 01/20/18 08:00 01/20/18 04:02 Labs: Laboratory Last Values WBC 6.2 K/mm3 (4.5-11.0) 01/20/18 08:00 RBC 3.88 M/mm3 (3.65-5.03) 01/20/18 08:00 Hgb 12.5 gm/dl (10.1-14.3) 01/20/18 08:00 Hct 38.6 % (30.3-42.9) D 01/20/18 08:00 MCV 100 fl (79-97) H 01/20/18 08:00 MCH 32 pg (28-32) 01/20/18 08:00 MCHC 33 % (30-34) 01/20/18 08:00 RDW 17.1 % (13.2-15.2) H 01/20/18 08:00 Plt Count 171 K/mm3 (140-440) D 01/20/18 08:00 Lymph % (Auto) Job Analyst 01/20/18 04:02 [place] % (Auto) Job Analyst 01/20/18 04:02 Eos % (Auto) Job Analyst 01/20/18 04:02 Baso % (Auto) Job Analyst 01/20/18 04:02 Lymph # Job Analyst 01/20/18 04:02 [place] # Job Analyst 01/20/18 04:02 Eos # Job Analyst 01/20/18 04:02 Baso # Job Analyst 01/20/18 04:02 Add Manual Diff Complete 01/20/18 04:02 Total Counted 100 01/20/18 04:02 Seg Neutrophils % Job Analyst 01/20/18 04:02 Seg Neuts % (Manual) 89.0 % (40.0-70.0) H 01/20/18 04:02 Band Neutrophils % 5.0 % 01/20/18 04:02 Lymphocytes % (Manual) 6.0 % (13.4-35.0) L 01/20/18 04:02 Reactive Lymphs % (Man) 0 % 01/20/18 04:02 Monocytes % (Manual) 0 % (0.0-7.3) 01/20/18 04:02 Eosinophils % (Manual) 0 % (0.0-4.3) 01/20/18 04:02 Basophils % (Manual) 0 % (0.0-1.8) 01/20/18 04:02 Metamyelocytes % 0 % 01/20/18 04:02 Myelocytes % 0 % 01/20/18 04:02 Promyelocytes % 0 % 01/20/18 04:02 Blast Cells % 0 % 01/20/18 04:02 Nucleated RBC % Not Reportable 01/20/18 04:02 Seg Neutrophils # Job Analyst 01/20/18 04:02 Seg Neutrophils # Man 5.0 K/mm3 (1.8-7.7) 01/20/18 04:02 Band Neutrophils # 0.3 K/mm3 01/20/18 04:02 Lymphocytes # (Manual) 0.3 K/mm3 (1.2-5.4) L 01/20/18 04:02 Abs React Lymphs (Man) 0.0 K/mm3 01/20/18 04:02 Monocytes # (Manual) 0.0 K/mm3 (0.0-0.8) 01/20/18 04:02 Eosinophils # (Manual) 0.0 K/mm3 (0.0-0.4) 01/20/18 04:02 Basophils # (Manual) 0.0 K/mm3 (0.0-0.1) 01/20/18 04:02 Metamyelocytes # 0.0 K/mm3 01/20/18 04:02 Myelocytes # 0.0 K/mm3 01/20/18 04:02 Promyelocytes # 0.0 K/mm3 01/20/18 04:02 Blast Cells # 0.0 K/mm3 01/20/18 04:02 WBC Morphology Not Reportable 01/20/18 04:02 Hypersegmented Neuts Not Reportable 01/20/18 04:02 Hyposegmented Neuts Not Reportable 01/20/18 04:02 Hypogranular Neuts Not Reportable 01/20/18 04:02 Smudge Cells Not Reportable 01/20/18 04:02 Toxic Granulation Not Reportable 01/20/18 04:02 Toxic Vacuolation Not Reportable 01/20/18 04:02 Dohle Bodies Not Reportable 01/20/18 04:02 Pelger-Huet Anomaly Not Reportable 01/20/18 04:02 Toribio Rods Not Reportable 01/20/18 04:02 Platelet Estimate Appears decreased 01/20/18 04:02 Clumped Platelets Not Reportable 01/20/18 04:02 Plt Clumps, EDTA Not Reportable 01/20/18 04:02 Large Platelets Not Reportable 01/20/18 04:02 Giant Platelets Not Reportable 01/20/18 04:02 Platelet Satelliting Not Reportable 01/20/18 04:02 Plt Morphology Comment Not Reportable 01/20/18 04:02 RBC Morphology Not Reportable 01/20/18 04:02 Dimorphic RBCs Not Reportable 01/20/18 04:02 Polychromasia Not Reportable 01/20/18 04:02 Hypochromasia Not Reportable 01/20/18 04:02 Poikilocytosis Not Reportable 01/20/18 04:02 Anisocytosis 1+ 01/20/18 04:02 Microcytosis Not Reportable 01/20/18 04:02 Macrocytosis Not Reportable 01/20/18 04:02 Spherocytes Not Reportable 01/20/18 04:02 Pappenheimer Bodies Not Reportable 01/20/18 04:02 Sickle Cells Not Reportable 01/20/18 04:02 Target Cells Not Reportable 01/20/18 04:02 Tear Drop Cells Not Reportable 01/20/18 04:02 Ovalocytes Not Reportable 01/20/18 04:02 Helmet Cells Not Reportable 01/20/18 04:02 [place] Bodies Not Reportable 01/20/18 04:02 [place] Rings Not Reportable 01/20/18 04:02 Julian Cells Not Reportable 01/20/18 04:02 Bite Cells Not Reportable 01/20/18 04:02 Crenated Cell Not Reportable 01/20/18 04:02 Elliptocytes Not Reportable 01/20/18 04:02 Acanthocytes (Spur) Not Reportable 01/20/18 04:02 Rouleaux Not Reportable 01/20/18 04:02 Hemoglobin C Crystals Not Reportable 01/20/18 04:02 Schistocytes Not Reportable 01/20/18 04:02 Malaria parasites Not Reportable 01/20/18 04:02 Fran Bodies Not Reportable 01/20/18 04:02 Hem Pathologist Commnt No 01/20/18 04:02 PT 23.9 Sec. (12.2-14.9) H 01/19/18 17:40 INR 1.99 (0.87-1.13) H 01/19/18 17:40 ABG pH 7.507 pH Units (7.350-7.450) H 01/20/18 03:50 ABG pCO2 29.1 mm Hg 01/20/18 03:50 ABG pO2 133.5 mm Hg (80.0-90.0) H 01/20/18 03:50 ABG HCO3 22.5 mmol/L (20.0-26.0) 01/20/18 03:50 ABG O2 Saturation 98.8 % (95.0-99.0) 01/20/18 03:50 ABG O2 Content 18.2 (0.0-44) 01/20/18 03:50 ABG Base Excess 0.5 mmol/L (-2.0-3.0) 01/20/18 03:50 ABG Hemoglobin 13.1 gm/dl (12.0-16.0) 01/20/18 03:50 ABG Carboxyhemoglobin 1.2 % (0.0-5.0) 01/20/18 03:50 ABG Methemoglobin 0.4 % (0.0-1.5) 01/20/18 03:50 VBG pH 7.447 (7.320-7.420) H 01/19/18 17:40 Oxyhemoglobin 97.2 % (95.0-99.0) 01/20/18 03:50 FiO2 35 % 01/20/18 03:50 Sodium 136 mmol/L (137-145) L 01/20/18 04:02 Potassium 4.4 mmol/L (3.6-5.0) D 01/20/18 04:02 Chloride 95.2 mmol/L (98-107) L 01/20/18 04:02 Carbon Dioxide 22 mmol/L (22-30) D 01/20/18 04:02 Anion Gap 23 mmol/L 01/20/18 04:02 BUN 18 mg/dL (7-17) H 01/20/18 04:02 Creatinine 0.7 mg/dL (0.7-1.2) 01/20/18 04:02 Estimated GFR > 60 ml/min 01/20/18 04:02 BUN/Creatinine Ratio 26 % 01/20/18 04:02 Glucose 189 mg/dL (65-100) H 01/20/18 04:02 POC Glucose 130 (70-105) H 01/20/18 10:03 Lactic Acid 3.70 mmol/L (0.7-2.0) H* 01/20/18 Unknown Calcium 7.8 mg/dL (8.4-10.2) L 01/20/18 04:02 Magnesium 0.20 mg/dL (1.7-2.3) L* 01/19/18 Unknown Total Bilirubin 2.00 mg/dL (0.1-1.2) H 01/20/18 04:02 AST 1717 units/L (5-40) H 01/20/18 04:02 ALT 970 units/L (7-56) H 01/20/18 04:02 Alkaline Phosphatase 169 units/L (35-129) H 01/20/18 04:02 Total Creatine Kinase 87 units/L (30-135) 01/19/18 Unknown CK-MB (CK-2) 5.1 ng/mL (0.0-4.0) H 01/19/18 17:40 CK-MB (CK-2) Rel Index 4.9 (0-4) H 01/19/18 17:40 Troponin T 0.187 ng/mL (0.00-0.029) H* 01/19/18 17:40 NT-Pro-B Natriuret Pep 816.0 pg/mL (0-900) 01/19/18 17:40 Total Protein 4.6 g/dL (6.3-8.2) L D 01/20/18 04:02 Albumin 2.0 g/dL (3.9-5) L 01/20/18 04:02 Albumin/Globulin Ratio 0.8 % 01/20/18 04:02 Triglycerides 76 mg/dL (2-149) 01/19/18 17:40 Cholesterol 42 mg/dL (50-199) L 01/19/18 17:40 LDL Cholesterol Direct 5 mg/dL (50-130) L 01/19/18 17:40 HDL Cholesterol 22 mg/dL (40-59) L 01/19/18 17:40 Cholesterol/HDL Ratio 1.90 % 01/19/18 17:40 Urine Color [place] (Yellow) 01/19/18 17:55 Urine Turbidity Cloudy (Clear) 01/19/18 17:55 Urine pH 5.0 (5.0-7.0) 01/19/18 17:55 Ur Specific [place] 1.013 (1.003-1.030) 01/19/18 17:55 Urine Protein <15 mg/dl mg/dL (Negative) 01/19/18 17:55 Urine Glucose (UA) Neg mg/dL (Negative) 01/19/18 17:55 Urine Ketones Neg mg/dL (Negative) 01/19/18 17:55 Urine Blood Sm (Negative) 01/19/18 17:55 Urine Nitrite Neg (Negative) 01/19/18 17:55 Urine Bilirubin Neg (Negative) 01/19/18 17:55 Urine Urobilinogen 4.0 mg/dL (<2.0) 04 17:55 Ur Leukocyte Esterase Mod (Negative) 01/19/18 17:55 Urine WBC (Auto) 44.0 /HPF (0.0-6.0) H 01/19/18 17:55 Urine RBC (Auto) 68.0 /HPF (0.0-6.0) 01/19/18 17:55 U Epithel Cells (Auto) < 1.0 /HPF (0-13.0) 01/19/18 17:55 Urine Bacteria (Auto) 2+ /HPF (Negative) 01/19/18 17:55 Urine WBC Clumps 3+ /HPF 01/19/18 17:55 Hyaline Casts 8 /LPF 01/19/18 17:55 Urine Mucus 2+ /HPF 01/19/18 17:55 Blood Type O POSITIVE 01/19/18 20:57 Antibody Screen Negative 01/19/18 20:57
[2018-01-20] MEDS ORDERED: MAXIPIME 1 GM in NACL 0.9% 20 ML IV SCH (22:00)
[2018-01-21] MEDS: LEVOPHED DRIP 4 MG/NS 250 ML 4 MG/250 ML BAG IV SCH ×4 (00:24→06:32)
[2018-01-21] MEDS: D50W (25GM) Syringe IV PRN ×3 (02:39→18:00)
[2018-01-21] MEDS: AZACTAM 1,000 MG in NACL 0.9% 20 ML IV SCH ×3 (05:41→22:05)
[2018-01-21 06:21] LABS: Hematocrit 31.6 % (30.3-42.9); Hemoglobin 10.6 gm/dl (10.1-14.3); Mean Corpuscular HGB Conc 34 % (30-34); Mean Corpuscular Hemoglobin 33 pg (28-32); Mean Corpuscular Volume 99 fl (79-97); Platelet Count 133 K/mm3 (140-440); Red Blood Count 3.19 M/mm3 (3.65-5.03); Red Cell Distribution Width 17.5 % (13.2-15.2)
[2018-01-21 06:45] LABS: BUN/Creatinine Ratio 27; Blood Urea Nitrogen 19 mg/dL (7-17); Hemolysis Index 3
[2018-01-21] MEDS: Vasostrict 20 UNIT in NACL 0.9% 100 ML IV SCH ×2 (08:14→17:34)
[2018-01-21] MEDS: LEVOPHED 8 MG in NACL 0.9% 250ML 242 ML IV SCH ×4 (08:15→23:54)
[2018-01-21] MEDS: NACL 0.9% 1000 ML 1,000 ML IV SCH ×2 (08:16→09:43)
[2018-01-21 08:22] LABS: Band Neutrophils # (Manual) 0.6 K/mm3; Basophils % (Manual) 0 % (0.0-1.8); Eosinophils % (Manual) 0 % (0.0-4.3); Total Cells Counted 100
[2018-01-21 08:23] LABS: Platelet Estimate Consistent w Auto; RBC Morphology Normal
[2018-01-21] MEDS: HEPARIN SUB-Q SCH ×2 (09:42→22:06)
[2018-01-21] MEDS: PEPCID IV SCH (09:42)
--- NOTE | 2018-01-21 09:53 | Progress Note ---
Assessment and Plan 82 y/o female with acute hypoxemic respiratory failure, thought secondary to altered mental state, secondary to sepsis with shock, possible source being urine now with thrombocytopenia and hypothermia and shock liver. 1. Pulm- now with worsening mental state. RT unable to obtain AM ABG. Current RT attempting now. Most likely more acidotic given vasopressor requirment and change in mental state. Most likely all metabolic. Continue vent support as currently. may need to increase FIO2. 2. CV- Tachycardia and persistent hypotension. More hypotensive, more tachy, will start hydrocortisone therapy. patient now on 2 pressors 3. GI- shock liver, secondary to hypotension. No with worsening blood sugar. Could be from fulminant liver failure. Repeating labs this am and started on steroids and D5W drip. 4. ID- Dirty UA, could be cause of sepsis with shock. Currently on broad spec abx, therapy. May need to re-evaluate this. Continue serial lactic acids. Now with kleib in sputum. 5. Overall prognosis is guarded to poor. Will attempt to speak with family again today. CCT 31 minutes. Subjective Date of service: 01/21/18 Interval history: Patient worse clinically today. Mental state is worse as well. Not as awake. Patient now requiring mulitple pressors. CVP is unreliable. Patient still has not made in urine. No family has been able to be reached. Objective Vital Signs - 12hr 01/20/18 01/20/18 01/20/18 22:00 22:15 22:30 Temperature Pulse Rate 101 H Respiratory 16 19 13 Rate Respiratory 17 Rate [Back] Blood Pressure 119/57 93/57 93/57 O2 Sat by Pulse 100 95 88 Oximetry 01/20/18 01/20/18 01/20/18 22:45 23:00 23:15 Temperature Pulse Rate 120 H 118 H 98 H Respiratory 19 19 18 Rate Respiratory Rate [Back] Blood Pressure 85/51 103/72 110/44 O2 Sat by Pulse 94 88 85 Oximetry 01/20/18 01/20/18 01/21/18 23:30 23:46 00:00 Temperature 97.8 F Pulse Rate 92 H 112 H Respiratory 20 14 15 Rate Respiratory Rate [Back] Blood Pressure 110/44 112/80 105/85 O2 Sat by Pulse 79 L 89 70 L Oximetry 01/21/18 01/21/18 01/21/18 00:04 00:07 00:16 Temperature Pulse Rate 114 H 126 H 120 H Respiratory 16 20 Rate Respiratory Rate [Back] Blood Pressure 105/85 105/85 88/51 O2 Sat by Pulse 80 L 94 87 Oximetry 01/21/18 01/21/18 01/21/18 00:30 00:46 01:00 Temperature Pulse Rate 121 H 122 H 121 H Respiratory 14 15 21 Rate Respiratory Rate [Back] Blood Pressure 88/51 94/56 101/48 O2 Sat by Pulse 100 Oximetry 01/21/18 01/21/18 01/21/18 01:15 01:30 01:46 Temperature Pulse Rate 122 H 122 H 122 H Respiratory 17 19 20 Rate Respiratory Rate [Back] Blood Pressure 94/46 95/41 87/48 O2 Sat by Pulse 74 L Oximetry 01/21/18 01/21/18 01/21/18 02:00 02:16 02:30 Temperature Pulse Rate 122 H Respiratory 19 14 19 Rate Respiratory Rate [Back] Blood Pressure 87/48 111/48 111/48 O2 Sat by Pulse 97 99 99 Oximetry 01/21/18 01/21/18 01/21/18 02:46 03:00 03:15 Temperature Pulse Rate 127 H 122 H Respiratory 20 20 23 Rate Respiratory Rate [Back] Blood Pressure 98/59 92/50 94/40 O2 Sat by Pulse 94 Oximetry 01/21/18 01/21/18 01/21/18 03:30 03:45 04:00 Temperature 98.1 F Pulse Rate 124 H 125 H 126 H Respiratory 25 H 16 18 Rate Respiratory Rate [Back] Blood Pressure 96/42 87/48 87/48 O2 Sat by Pulse 100 Oximetry 01/21/18 01/21/18 01/21/18 04:16 04:30 04:45 Temperature Pulse Rate 128 H 126 H 123 H Respiratory 18 13 21 Rate Respiratory Rate [Back] Blood Pressure 162/139 83/49 O2 Sat by Pulse 85 Oximetry 01/21/18 01/21/18 01/21/18 05:00 05:15 05:20 Temperature Pulse Rate 136 H 140 H 129 H Respiratory 15 22 Rate Respiratory Rate [Back] Blood Pressure 65/34 96/63 65/34 O2 Sat by Pulse 97 97 Oximetry 01/21/18 01/21/18 01/21/18 05:30 05:46 06:00 Temperature Pulse Rate 131 H 148 H 136 H Respiratory 26 H 14 22 Rate Respiratory Rate [Back] Blood Pressure 78/49 124/86 86/51 O2 Sat by Pulse 77 L Oximetry 01/21/18 01/21/18 01/21/18 06:15 06:30 06:45 Temperature Pulse Rate 131 H 145 H 136 H Respiratory 20 14 21 Rate Respiratory Rate [Back] Blood Pressure 78/45 97/63 92/46 O2 Sat by Pulse Oximetry 01/21/18 01/21/18 01/21/18 07:00 07:16 07:30 Temperature Pulse Rate 131 H 130 H 129 H Respiratory 29 H 23 26 H Rate Respiratory Rate [Back] Blood Pressure 82/40 75/41 69/49 O2 Sat by Pulse 83 L 48 L Oximetry 01/21/18 01/21/18 01/21/18 07:45 07:54 08:00 Temperature Pulse Rate 124 H 123 H 124 H Respiratory 22 24 Rate Respiratory Rate [Back] Blood Pressure 82/40 79/47 90/60 O2 Sat by Pulse 76 L 98 Oximetry 01/21/18 01/21/18 01/21/18 08:16 08:30 08:46 Temperature Pulse Rate 122 H 120 H 121 H Respiratory 22 22 22 Rate Respiratory Rate [Back] Blood Pressure 79/47 93/45 80/47 O2 Sat by Pulse Oximetry 01/21/18 01/21/18 09:00 09:15 Temperature Pulse Rate 120 H 119 H Respiratory 22 21 Rate Respiratory Rate [Back] Blood Pressure 82/52 88/58 O2 Sat by Pulse 100 81 L Oximetry Constitutional: comatose Eyes: non-icteric ENT: other (orally intubated, not on sedation) Neck: supple, no JVD Effort: mildly labored Ascultation: Bilateral: diminished breath sounds, rhonchi Percussion: Bilateral: not dull Tactile fremitus: Bilateral: normal Cardiovascular: other (tachycardia) Gastrointestinal: normoactive bowel sounds, soft Extremities: no edema Neurologic: unable to assess CBC and BMP: 01/21/18 05:00 01/21/18 05:00 ABG, PT/INR, D-dimer: ABG ABG pH 7.507 pH Units (7.350-7.450) H 01/20/18 03:50 ABG pCO2 29.1 mm Hg 01/20/18 03:50 ABG pO2 133.5 mm Hg (80.0-90.0) H 01/20/18 03:50 ABG O2 Saturation 98.8 % (95.0-99.0) 01/20/18 03:50 PT/INR, D-dimer PT 23.9 Sec. (12.2-14.9) H 01/19/18 17:40 INR 1.99 (0.87-1.13) H 01/19/18 17:40 Abnormal lab findings: Abnormal Labs 01/19/18 01/19/18 01/19/18 17:40 17:40 17:40 RBC 2.91 L Hgb 9.5 L Hct 29.1 L MCV 100 H MCH 33 H RDW 17.0 H Plt Count Seg Neuts % (Manual) 95.0 H Lymphocytes % (Manual) 3.0 L Seg Neutrophils # Man Lymphocytes # (Manual) 0.2 L PT 23.9 H INR 1.99 H ABG pH ABG pO2 ABG HCO3 ABG O2 Saturation ABG Base Excess ABG Hemoglobin VBG pH Sodium Potassium 2.7 L* Chloride 90.1 L Carbon Dioxide 32 H BUN 21 H Glucose 142 H POC Glucose Lactic Acid Calcium Magnesium Total Bilirubin 1.30 H AST 1592 H ALT 632 H Alkaline Phosphatase CK-MB (CK-2) CK-MB (CK-2) Rel Index Troponin T Total Protein 3.5 L Albumin 1.5 L Cholesterol LDL Cholesterol Direct HDL Cholesterol Urine WBC (Auto) 01/19/18 01/19/18 01/19/18 17:40 17:40 17:40 RBC Hgb Hct MCV MCH RDW Plt Count Seg Neuts % (Manual) Lymphocytes % (Manual) Seg Neutrophils # Man Lymphocytes # (Manual) PT INR ABG pH ABG pO2 ABG HCO3 ABG O2 Saturation ABG Base Excess ABG Hemoglobin VBG pH 7.447 H Sodium Potassium Chloride Carbon Dioxide BUN Glucose POC Glucose Lactic Acid 4.50 H* Calcium Magnesium Total Bilirubin AST ALT Alkaline Phosphatase CK-MB (CK-2) 5.1 H CK-MB (CK-2) Rel Index 4.9 H Troponin T 0.187 H* Total Protein Albumin Cholesterol 42 L LDL Cholesterol Direct 5 L HDL Cholesterol 22 L Urine WBC (Auto) 01/19/18 01/19/18 01/19/18 17:55 18:10 19:00 RBC Hgb Hct MCV MCH RDW Plt Count Seg Neuts % (Manual) Lymphocytes % (Manual) Seg Neutrophils # Man Lymphocytes # (Manual) PT INR ABG pH 7.486 H ABG pO2 420.1 H ABG HCO3 31.3 H ABG O2 Saturation 99.6 H ABG Base Excess 7.2 H ABG Hemoglobin 11.0 L VBG pH Sodium Potassium Chloride Carbon Dioxide BUN Glucose POC Glucose 114 H Lactic Acid Calcium Magnesium Total Bilirubin AST ALT Alkaline Phosphatase CK-MB (CK-2) CK-MB (CK-2) Rel Index Troponin T Total Protein Albumin Cholesterol LDL Cholesterol Direct HDL Cholesterol Urine WBC (Auto) 44.0 H 01/19/18 01/19/18 01/19/18 19:47 21:30 Unknown RBC Hgb Hct MCV MCH RDW Plt Count Seg Neuts % (Manual) Lymphocytes % (Manual) Seg Neutrophils # Man Lymphocytes # (Manual) PT INR ABG pH ABG pO2 ABG HCO3 ABG O2 Saturation ABG Base Excess ABG Hemoglobin VBG pH Sodium Potassium Chloride Carbon Dioxide BUN Glucose POC Glucose Lactic Acid 3.60 H* 3.60 H* Calcium Magnesium 0.20 L* Total Bilirubin AST ALT Alkaline Phosphatase CK-MB (CK-2) CK-MB (CK-2) Rel Index Troponin T Total Protein Albumin Cholesterol LDL Cholesterol Direct HDL Cholesterol Urine WBC (Auto) 01/20/18 01/20/18 01/20/18 03:50 04:02 04:02 RBC Hgb 14.7 H D Hct 45.2 H D MCV 101 H MCH 33 H RDW 17.3 H Plt Count 73 L Seg Neuts % (Manual) 89.0 H Lymphocytes % (Manual) 6.0 L Seg Neutrophils # Man Lymphocytes # (Manual) 0.3 L PT INR ABG pH 7.507 H ABG pO2 133.5 H ABG HCO3 ABG O2 Saturation ABG Base Excess ABG Hemoglobin VBG pH Sodium 136 L Potassium Chloride 95.2 L Carbon Dioxide BUN 18 H Glucose 189 H POC Glucose Lactic Acid Calcium 7.8 L Magnesium Total Bilirubin 2.00 H AST 1717 H ALT 970 H Alkaline Phosphatase 169 H CK-MB (CK-2) CK-MB (CK-2) Rel Index Troponin T Total Protein 4.6 L D Albumin 2.0 L Cholesterol LDL Cholesterol Direct HDL Cholesterol Urine WBC (Auto) 01/20/18 01/20/18 01/20/18 04:02 08:00 08:10 RBC Hgb Hct MCV 100 H MCH RDW 17.1 H Plt Count Seg Neuts % (Manual) Lymphocytes % (Manual) Seg Neutrophils # Man Lymphocytes # (Manual) PT INR ABG pH ABG pO2 ABG HCO3 ABG O2 Saturation ABG Base Excess ABG Hemoglobin VBG pH Sodium Potassium Chloride Carbon Dioxide BUN Glucose POC Glucose Lactic Acid 4.10 H* 5.10 H* Calcium Magnesium Total Bilirubin AST ALT Alkaline Phosphatase CK-MB (CK-2) CK-MB (CK-2) Rel Index Troponin T Total Protein Albumin Cholesterol LDL Cholesterol Direct HDL Cholesterol Urine WBC (Auto) 01/20/18 01/20/18 01/20/18 10:03 14:34 Unknown RBC Hgb Hct MCV MCH RDW Plt Count Seg Neuts % (Manual) Lymphocytes % (Manual) Seg Neutrophils # Man Lymphocytes # (Manual) PT INR ABG pH ABG pO2 ABG HCO3 ABG O2 Saturation ABG Base Excess ABG Hemoglobin VBG pH Sodium Potassium Chloride Carbon Dioxide BUN Glucose POC Glucose 130 H 152 H Lactic Acid 3.70 H* Calcium Magnesium Total Bilirubin AST ALT Alkaline Phosphatase CK-MB (CK-2) CK-MB (CK-2) Rel Index Troponin T Total Protein Albumin Cholesterol LDL Cholesterol Direct HDL Cholesterol Urine WBC (Auto) 01/21/18 01/21/18 01/21/18 02:22 05:00 05:00 RBC 3.19 L Hgb Hct MCV 99 H MCH 33 H RDW 17.5 H Plt Count 133 L Seg Neuts % (Manual) 84.0 H Lymphocytes % (Manual) 8.0 L Seg Neutrophils # Man 8.2 H Lymphocytes # (Manual) 0.8 L PT INR ABG pH ABG pO2 ABG HCO3 ABG O2 Saturation ABG Base Excess ABG Hemoglobin VBG pH Sodium Potassium Chloride Carbon Dioxide 17 L BUN 19 H Glucose 129 H POC Glucose 63 L Lactic Acid Calcium 6.0 L D Magnesium Total Bilirubin AST ALT Alkaline Phosphatase CK-MB (CK-2) CK-MB (CK-2) Rel Index Troponin T Total Protein Albumin Cholesterol LDL Cholesterol Direct HDL Cholesterol Urine WBC (Auto) 01/21/18 07:15 RBC Hgb Hct MCV MCH RDW Plt Count Seg Neuts % (Manual) Lymphocytes % (Manual) Seg Neutrophils # Man Lymphocytes # (Manual) PT INR ABG pH ABG pO2 ABG HCO3 ABG O2 Saturation ABG Base Excess ABG Hemoglobin VBG pH Sodium Potassium Chloride Carbon Dioxide BUN Glucose POC Glucose Lactic Acid 3.70 H* Calcium Magnesium Total Bilirubin AST ALT Alkaline Phosphatase CK-MB (CK-2) CK-MB (CK-2) Rel Index Troponin T Total Protein Albumin Cholesterol LDL Cholesterol Direct HDL Cholesterol Urine WBC (Auto)
[2018-01-21 10:12] LABS: Albumin 1.5 g/dL (3.9-5); Bilirubin,Direct 0.9 mg/dL (0-0.2)
[2018-01-21 10:27] LABS: ABG Base Excess -6.8 mmol/L (-2.0-3.0); ABG HCO3 15.6 mmol/L (20.0-26.0); ABG Methemoglobin 0.5 % (0.0-1.5); ABG Oxygen Saturation 91.4 % (95.0-99.0); ABG PCO2 23.4 mm Hg; ABG PH 7.443 pH Units (7.350-7.450); ABG PO2 58.6 mm Hg (80.0-90.0)
[2018-01-21] MEDS ORDERED: SODIUM BICARBONATE 150 MEQ in D5W 1,000 ML IV SCH (11:00)
[2018-01-21 11:24] LABS: INR 1.79 (0.87-1.13)
[2018-01-21 11:25] LABS: Partial Thromboplastin Time 35.3 Sec. (24.2-36.6)
[2018-01-21] MEDS: SODIUM CHLORIDE FLUSH SYRINGE 10 ML IV SCH ×2 (12:36→22:06)
--- NOTE | 2018-01-21 14:20 | Event Note ---
Date: 01/21/18 Ethics consult: Focal consult on chart. Patient seen and examined. Patient is in shock with rapidly declining status and no family members available to assist in decision making. The patient has been a resident of care homes for the last proximally 20 years. She presented with altered mental status and was intubated. She is currently nonresponsive. She is on multiple pressors and requiring additional pressor medications. There does not appear to be any hope of meaningful recovery. The recommendations of the ethics committee is to change the patient' s CODE STATUS to allow natural .
[2018-01-21] MEDS ORDERED: VANCOMYCIN/NS 1 GM/250 ML 1 GM/250 ML BAG IV SCH (14:30)
--- NOTE | 2018-01-21 16:51 | Progress Note ---
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 Pt is stuporous on exam and unable to provide history. Pt history taken from medical record, ED Staff, and EMS. As per EMS, the patient was found to have agonal breathing in the field, as was transported to [facility] for further care and evaluation. Pt seen and evaluated in ED and found to be hypotensive with systolic BP in the 40's, secondary to Septic shock. Pt also found to have evidence of early shock liver, as well as elevated troponin which is suspected secondary to hypoperfusion. Pt found to be in acute respiratory failure. Pt intubated and placed on vent support. No further history is provided. Pt admitted to ICU. Pulmonary team consulted. Pt found to have poor prognosis. Septic shock - Patient is on pressors, IV azithromycin, and vancomycin Acute hypoxic respiratory failure, patient was not able to take care of her otherwise - Patient is intubated and on mechanical ventilation - Pulmonary arteries following Acute metabolic encephalopathy - don't know base line Patient has very poor prognosis Disposition - Continue ICU care Patient admitted for septic shock and pressor support max out and no family member was in the room to discuss with the management plan, patient was in [facility] for the last 20 years and I have discussed with ethics committee and patient is currently AND. History Interval history: Patient was seen and evaluated this morning, patient was intubated in the mechanical ventilation, patient is non-communicative. No family member was in the room to discuss the management plan. I have discussed with ethics committee and decided to make her at AND Hospitalist Physical - Physical exam Narrative exam: Patient is intubated and on mechanical ventilation The patient appeared well nourished and normally developed. Vital signs as documented. Head exam is unremarkable. No scleral icterus . Neck is without jugular venous distension, thyromegaly, or carotid bruits. Lungs are clear to auscultation. Cardiac exam reveals regular rate and Rhythm. First and second heart sounds normal. No murmurs, rubs or gallops. Abdominal exam reveals normal bowel sounds, no masses, no organomegaly and no aortic enlargement. Extremities are nonedematous and both femoral and pedal pulses are normal. CORPORATE DEVELOPMENT INTERN: Patient is comatose. - Constitutional Vitals: Temp Pulse Resp BP Pulse Ox 98.1 F 125 H 20 96/59 97 04/11/18 12:00 01/21/18 15:17 01/21/18 13:30 01/21/18 15:17 01/21/18 11:51 General appearance: Present: severe distress, disheveled Results - Labs CBC & Chem 7: 01/21/18 05:00 01/21/18 05:00 Labs: Laboratory Last Values WBC 9.8 K/mm3 (4.5-11.0) 01/21/18 05:00 RBC 3.19 M/mm3 (3.65-5.03) L 01/21/18 05:00 Hgb 10.6 gm/dl (10.1-14.3) 01/21/18 05:00 Hct 31.6 % (30.3-42.9) D 01/21/18 05:00 MCV 99 fl (79-97) H 01/21/18 05:00 MCH 33 pg (28-32) H 01/21/18 05:00 MCHC 34 % (30-34) 01/21/18 05:00 RDW 17.5 % (13.2-15.2) H 01/21/18 05:00 Plt Count 133 K/mm3 (140-440) L 01/21/18 05:00 Lymph % (Auto) Ends Down Checker 01/20/18 04:02 [place] % (Auto) Ends Down Checker 01/20/18 04:02 Eos % (Auto) Ends Down Checker 01/20/18 04:02 Baso % (Auto) Ends Down Checker 01/20/18 04:02 Lymph # Ends Down Checker 01/20/18 04:02 [place] # Ends Down Checker 01/20/18 04:02 Eos # Ends Down Checker 01/20/18 04:02 Baso # Ends Down Checker 01/20/18 04:02 Add Manual Diff Complete 01/21/18 05:00 Total Counted 100 01/21/18 05:00 Seg Neutrophils % Ends Down Checker 01/20/18 04:02 Seg Neuts % (Manual) 84.0 % (40.0-70.0) H 01/21/18 05:00 Band Neutrophils % 6.0 % 01/21/18 05:00 Lymphocytes % (Manual) 8.0 % (13.4-35.0) L 01/21/18 05:00 Reactive Lymphs % (Man) 0 % 01/21/18 05:00 Monocytes % (Manual) 2.0 % (0.0-7.3) 01/21/18 05:00 Eosinophils % (Manual) 0 % (0.0-4.3) 01/21/18 05:00 Basophils % (Manual) 0 % (0.0-1.8) 01/21/18 05:00 Metamyelocytes % 0 % 01/21/18 05:00 Myelocytes % 0 % 01/21/18 05:00 Promyelocytes % 0 % 01/21/18 05:00 Blast Cells % 0 % 01/21/18 05:00 Nucleated RBC % Not Reportable 01/21/18 05:00 Seg Neutrophils # Ends Down Checker 01/20/18 04:02 Seg Neutrophils # Man 8.2 K/mm3 (1.8-7.7) H 01/21/18 05:00 Band Neutrophils # 0.6 K/mm3 01/21/18 05:00 Lymphocytes # (Manual) 0.8 K/mm3 (1.2-5.4) L 01/21/18 05:00 Abs React Lymphs (Man) 0.0 K/mm3 01/21/18 05:00 Monocytes # (Manual) 0.2 K/mm3 (0.0-0.8) 01/21/18 05:00 Eosinophils # (Manual) 0.0 K/mm3 (0.0-0.4) 01/21/18 05:00 Basophils # (Manual) 0.0 K/mm3 (0.0-0.1) 01/21/18 05:00 Metamyelocytes # 0.0 K/mm3 01/21/18 05:00 Myelocytes # 0.0 K/mm3 01/21/18 05:00 Promyelocytes # 0.0 K/mm3 01/21/18 05:00 Blast Cells # 0.0 K/mm3 01/21/18 05:00 WBC Morphology Not Reportable 01/21/18 05:00 Hypersegmented Neuts Not Reportable 01/21/18 05:00 Hyposegmented Neuts Not Reportable 01/21/18 05:00 Hypogranular Neuts Not Reportable 01/21/18 05:00 Smudge Cells Not Reportable 01/21/18 05:00 Toxic Granulation Not Reportable 01/21/18 05:00 Toxic Vacuolation Not Reportable 01/21/18 05:00 Dohle Bodies Not Reportable 01/21/18 05:00 Pelger-Huet Anomaly Not Reportable 01/21/18 05:00 Toribio Rods Not Reportable 01/21/18 05:00 Platelet Estimate Consistent w auto 01/21/18 05:00 Clumped Platelets Not Reportable 01/21/18 05:00 Plt Clumps, EDTA Not Reportable 01/21/18 05:00 Large Platelets Not Reportable 01/21/18 05:00 Giant Platelets Not Reportable 01/21/18 05:00 Platelet Satelliting Not Reportable 01/21/18 05:00 Plt Morphology Comment Not Reportable 01/21/18 05:00 RBC Morphology Normal 01/21/18 05:00 Dimorphic RBCs Not Reportable 01/21/18 05:00 Polychromasia Not Reportable 01/21/18 05:00 Hypochromasia Not Reportable 01/21/18 05:00 Poikilocytosis Not Reportable 01/21/18 05:00 Anisocytosis Not Reportable 01/21/18 05:00 Microcytosis Not Reportable 01/21/18 05:00 Macrocytosis Not Reportable 01/21/18 05:00 Spherocytes Not Reportable 01/21/18 05:00 Pappenheimer Bodies Not Reportable 01/21/18 05:00 Sickle Cells Not Reportable 01/21/18 05:00 Target Cells Not Reportable 01/21/18 05:00 Tear Drop Cells Not Reportable 01/21/18 05:00 Ovalocytes Not Reportable 01/21/18 05:00 Helmet Cells Not Reportable 01/21/18 05:00 [place] Bodies Not Reportable 01/21/18 05:00 [place] Rings Not Reportable 01/21/18 05:00 [place] Cells Not Reportable 01/21/18 05:00 Bite Cells Not Reportable 01/21/18 05:00 Crenated Cell Not Reportable 01/21/18 05:00 Elliptocytes Not Reportable 01/21/18 05:00 Acanthocytes (Spur) Not Reportable 01/21/18 05:00 Rouleaux Not Reportable 01/21/18 05:00 Hemoglobin C Crystals Not Reportable 01/21/18 05:00 Schistocytes Not Reportable 01/21/18 05:00 Malaria parasites Not Reportable 01/21/18 05:00 Fran Bodies Not Reportable 01/21/18 05:00 Hem Pathologist Commnt No 01/21/18 05:00 PT 21.9 Sec. (12.2-14.9) H 01/21/18 10:45 INR 1.79 (0.87-1.13) H 01/21/18 10:45 APTT 35.3 Sec. (24.2-36.6) 01/21/18 10:45 ABG pH 7.443 pH Units (7.350-7.450) 01/21/18 10:20 ABG pCO2 23.4 mm Hg 01/21/18 10:20 ABG pO2 58.6 mm Hg (80.0-90.0) L 01/21/18 10:20 ABG HCO3 15.6 mmol/L (20.0-26.0) L 01/21/18 10:20 ABG O2 Saturation 91.4 % (95.0-99.0) L 01/21/18 10:20 ABG O2 Content 14.7 (0.0-44) 01/21/18 10:20 ABG Base Excess -6.8 mmol/L (-2.0-3.0) L 01/21/18 10:20 ABG Hemoglobin 11.6 gm/dl (12.0-16.0) L 01/21/18 10:20 ABG Carboxyhemoglobin 1.1 % (0.0-5.0) 01/21/18 10:20 ABG Methemoglobin 0.5 % (0.0-1.5) 01/21/18 10:20 VBG pH 7.447 (7.320-7.420) H 01/19/18 17:40 Oxyhemoglobin 89.9 % (95.0-99.0) L 01/21/18 10:20 FiO2 30 % 01/21/18 10:20 Sodium 139 mmol/L (137-145) 01/21/18 05:00 Potassium 3.7 mmol/L (3.6-5.0) 01/21/18 05:00 Chloride 104.9 mmol/L (98-107) 01/21/18 05:00 Carbon Dioxide 17 mmol/L (22-30) L 01/21/18 05:00 Anion Gap 21 mmol/L 01/21/18 05:00 BUN 19 mg/dL (7-17) H 01/21/18 05:00 Creatinine 0.7 mg/dL (0.7-1.2) 01/21/18 05:00 Estimated GFR > 60 ml/min 01/21/18 05:00 BUN/Creatinine Ratio 27 % 01/21/18 05:00 Glucose 129 mg/dL (65-100) H 01/21/18 05:00 POC Glucose 71 (70-105) 01/21/18 09:36 Lactic Acid 3.70 mmol/L (0.7-2.0) H* 01/21/18 07:15 Calcium 6.0 mg/dL (8.4-10.2) L D 01/21/18 05:00 Magnesium 0.20 mg/dL (1.7-2.3) L* 01/19/18 Unknown Total Bilirubin 1.20 mg/dL (0.1-1.2) 01/21/18 05:00 Direct Bilirubin 0.9 mg/dL (0-0.2) H 01/21/18 05:00 Indirect Bilirubin 0.3 mg/dL 01/21/18 05:00 AST 587 units/L (5-40) H 01/21/18 05:00 ALT 556 units/L (7-56) H 01/21/18 05:00 Alkaline Phosphatase 154 units/L (35-129) H 01/21/18 05:00 Total Creatine Kinase 87 units/L (30-135) 01/19/18 Unknown CK-MB (CK-2) 5.1 ng/mL (0.0-4.0) H 01/19/18 17:40 CK-MB (CK-2) Rel Index 4.9 (0-4) H 01/19/18 17:40 Troponin T 0.187 ng/mL (0.00-0.029) H* 01/19/18 17:40 NT-Pro-B Natriuret Pep 816.0 pg/mL (0-900) 01/19/18 17:40 Total Protein 3.5 g/dL (6.3-8.2) L D 01/21/18 05:00 Albumin 1.5 g/dL (3.9-5) L 01/21/18 05:00 Albumin/Globulin Ratio 0.8 % 01/21/18 05:00 Triglycerides 76 mg/dL (2-149) 01/19/18 17:40 Cholesterol 42 mg/dL (50-199) L 01/19/18 17:40 LDL Cholesterol Direct 5 mg/dL (50-130) L 01/19/18 17:40 HDL Cholesterol 22 mg/dL (40-59) L 01/19/18 17:40 Cholesterol/HDL Ratio 1.90 % 01/19/18 17:40 Urine Color Chasidy (Yellow) 01/19/18 17:55 Urine Turbidity Cloudy (Clear) 01/19/18 17:55 Urine pH 5.0 (5.0-7.0) 01/19/18 17:55 Ur Specific [place] 1.013 (1.003-1.030) 01/19/18 17:55 Urine Protein <15 mg/dl mg/dL (Negative) 01/19/18 17:55 Urine Glucose (UA) Neg mg/dL (Negative) 01/19/18 17:55 Urine Ketones Neg mg/dL (Negative) 01/19/18 17:55 Urine Blood Sm (Negative) 01/19/18 17:55 Urine Nitrite Neg (Negative) 01/19/18 17:55 Urine Bilirubin Neg (Negative) 01/19/18 17:55 Urine Urobilinogen 4.0 mg/dL (<2.0) 01/19/18 17:55 Ur Leukocyte Esterase Mod (Negative) 01/19/18 17:55 Urine WBC (Auto) 44.0 /HPF (0.0-6.0) H 01/19/18 17:55 Urine RBC (Auto) 68.0 /HPF (0.0-6.0) 01/19/18 17:55 U Epithel Cells (Auto) < 1.0 /HPF (0-13.0) 01/19/18 17:55 Urine Bacteria (Auto) 2+ /HPF (Negative) 01/19/18 17:55 Urine WBC Clumps 3+ /HPF 01/19/18 17:55 Hyaline Casts 8 /LPF 01/19/18 17:55 Urine Mucus 2+ /HPF 01/19/18 17:55 Blood Type O POSITIVE 01/19/18 20:57 Antibody Screen Negative 01/19/18 20:57
[2018-01-22] MEDS: Vasostrict 20 UNIT in NACL 0.9% 100 ML IV SCH ×2 (03:41→16:38)
[2018-01-22] MEDS ORDERED: NACL 0.9% 1000 ML 1,000 ML IV ONE (05:05)
--- NOTE | 2018-01-22 05:25 | Event Note ---
Date: 01/22/18 called by nurse, heart rate 200 Patient clinically dry, rectal temp 100.4 give tylenol, IV fluid
[2018-01-22] MEDS ORDERED: TYLENOL PR PRN (05:26)
[2018-01-22] MEDS ORDERED: NACL 0.9% 1000 ML 1,000 ML IV SCH (06:00)
[2018-01-22] MEDS: LEVOPHED 8 MG in NACL 0.9% 250ML 242 ML IV SCH ×3 (07:50→15:35)
[2018-01-22] MEDS: PEPCID IV SCH (10:07)
[2018-01-22] MEDS: HEPARIN SUB-Q SCH ×2 (10:07→21:53)
[2018-01-22] MEDS: SODIUM CHLORIDE FLUSH SYRINGE 10 ML IV SCH ×2 (10:08→21:53)
[2018-01-22] MEDS: AZACTAM 1,000 MG in NACL 0.9% 20 ML IV SCH ×3 (10:10→21:52)
--- NOTE | 2018-01-22 14:23 | Progress Note ---
Assessment and Plan 82 y/o female with acute hypoxemic respiratory failure, thought secondary to altered mental state, secondary to sepsis with shock, possible source being urine now with thrombocytopenia and hypothermia and shock liver. 1. Pulm- remains intubated, no sedation. 2. CV- Tachycardia and persistent hypotension. More hypotensive, more tachy. Still on pressor therapy. Not weaning given AND status. This needs to be changed in the computer. No further escalation of care. Stopped Hydrocortisone. 3. GI- shock liver, secondary to hypotension. No with worsening blood sugar. Could be from fulminant liver failure. Repeating labs this am and started on steroids and D5W drip. 4. ID- Dirty UA, could be cause of sepsis with shock. Currently on broad spec abx, therapy. May need to re-evaluate this. Continue serial lactic acids. Now with kleib in sputum. 5. Overall prognosis is guarded to poor. CCT 31 minutes. Subjective Date of service: 01/22/18 Interval history: patient made DNR, by ethics agreement with us on yesterday. last night, had significant tachycardia, most likely secondary to pressor therapy. HR down some now. Objective Vital Signs - 12hr 01/22/18 01/22/18 01/22/18 02:30 02:46 03:00 Temperature Pulse Rate 109 H 131 H 124 H Respiratory 20 20 25 H Rate Respiratory Rate [Back] Blood Pressure 80/43 97/68 97/68 O2 Sat by Pulse 83 L Oximetry 01/22/18 01/22/18 01/22/18 03:15 03:30 03:45 Temperature Pulse Rate 126 H 116 H 117 H Respiratory 25 H 28 H 24 Rate Respiratory Rate [Back] Blood Pressure 87/53 87/50 86/51 O2 Sat by Pulse 84 88 Oximetry 01/22/18 01/22/18 01/22/18 04:00 04:16 04:30 Temperature 98.3 F Pulse Rate 125 H 220 H 216 H Respiratory 25 H 25 H 30 H Rate Respiratory Rate [Back] Blood Pressure 82/53 82/53 79/44 O2 Sat by Pulse 84 Oximetry 01/22/18 01/22/18 01/22/18 04:46 05:00 05:15 Temperature Pulse Rate 197 H 172 H 207 H Respiratory 34 H 29 H 28 H Rate Respiratory Rate [Back] Blood Pressure 79/44 74/48 67/45 O2 Sat by Pulse Oximetry 01/22/18 01/22/18 01/22/18 05:30 05:40 05:46 Temperature Pulse Rate 188 H 207 H 138 H Respiratory 26 H 31 H Rate Respiratory Rate [Back] Blood Pressure 77/46 77/46 77/46 O2 Sat by Pulse 90 Oximetry 01/22/18 01/22/18 01/22/18 06:00 06:16 06:30 Temperature Pulse Rate 175 H 181 H 202 H Respiratory 26 H 27 H 32 H Rate Respiratory Rate [Back] Blood Pressure 71/32 73/50 74/53 O2 Sat by Pulse Oximetry 01/22/18 01/22/18 01/22/18 06:45 07:00 07:16 Temperature Pulse Rate 181 H 199 H 223 H Respiratory 29 H 31 H 32 H Rate Respiratory Rate [Back] Blood Pressure 62/44 61/37 68/46 O2 Sat by Pulse Oximetry 01/22/18 01/22/18 01/22/18 07:30 07:46 07:48 Temperature 99.4 F Pulse Rate 221 H 216 H Respiratory 31 H 29 H Rate Respiratory Rate [Back] Blood Pressure 61/37 74/47 O2 Sat by Pulse Oximetry 01/22/18 01/22/18 01/22/18 08:00 08:16 08:30 Temperature Pulse Rate 223 H 194 H 211 H Respiratory 30 H 31 H 27 H Rate Respiratory Rate [Back] Blood Pressure 68/46 87/61 80/53 O2 Sat by Pulse Oximetry 01/22/18 01/22/18 01/22/18 08:46 09:00 09:16 Temperature Pulse Rate 134 H 212 H 207 H Respiratory 26 H 32 H 30 H Rate Respiratory Rate [Back] Blood Pressure 73/38 80/48 71/52 O2 Sat by Pulse Oximetry 01/22/18 01/22/18 01/22/18 09:30 10:00 11:40 Temperature 98.3 F Pulse Rate 207 H 209 H Respiratory 30 H Rate Respiratory 17 Rate [Back] Blood Pressure 71/52 O2 Sat by Pulse Oximetry 01/22/18 12:01 Temperature Pulse Rate 143 H Respiratory Rate Respiratory Rate [Back] Blood Pressure 107/56 O2 Sat by Pulse Oximetry Constitutional: comatose Eyes: non-icteric ENT: other (orally intubated, not on sedation) Neck: supple, no JVD Effort: mildly labored Ascultation: Bilateral: diminished breath sounds, rhonchi Percussion: Bilateral: not dull Tactile fremitus: Bilateral: normal Cardiovascular: other (tachycardia) Gastrointestinal: normoactive bowel sounds, soft Extremities: no edema Neurologic: unable to assess CBC and BMP: 01/21/18 05:00 01/21/18 18:45 ABG, PT/INR, D-dimer: ABG ABG pH 7.443 pH Units (7.350-7.450) 01/21/18 10:20 ABG pCO2 23.4 mm Hg 01/21/18 10:20 ABG pO2 58.6 mm Hg (80.0-90.0) L 01/21/18 10:20 ABG O2 Saturation 91.4 % (95.0-99.0) L 01/21/18 10:20 PT/INR, D-dimer PT 21.9 Sec. (12.2-14.9) H 01/21/18 10:45 INR 1.79 (0.87-1.13) H 01/21/18 10:45 Abnormal lab findings: Abnormal Labs 01/19/18 01/19/18 01/19/18 17:40 17:40 17:40 RBC 2.91 L Hgb 9.5 L Hct 29.1 L MCV 100 H MCH 33 H RDW 17.0 H Plt Count Seg Neuts % (Manual) 95.0 H Lymphocytes % (Manual) 3.0 L Seg Neutrophils # Man Lymphocytes # (Manual) 0.2 L PT 23.9 H INR 1.99 H ABG pH ABG pO2 ABG HCO3 ABG O2 Saturation ABG Base Excess ABG Hemoglobin VBG pH Oxyhemoglobin Sodium Potassium 2.7 L* Chloride 90.1 L Carbon Dioxide 32 H BUN 21 H Glucose 142 H POC Glucose Lactic Acid Calcium Magnesium Total Bilirubin 1.30 H Direct Bilirubin AST 1592 H ALT 632 H Alkaline Phosphatase CK-MB (CK-2) CK-MB (CK-2) Rel Index Troponin T Total Protein 3.5 L Albumin 1.5 L Cholesterol LDL Cholesterol Direct HDL Cholesterol Urine WBC (Auto) 01/19/18 01/19/18 01/19/18 17:40 17:40 17:40 RBC Hgb Hct MCV MCH RDW Plt Count Seg Neuts % (Manual) Lymphocytes % (Manual) Seg Neutrophils # Man Lymphocytes # (Manual) PT INR ABG pH ABG pO2 ABG HCO3 ABG O2 Saturation ABG Base Excess ABG Hemoglobin VBG pH 7.447 H Oxyhemoglobin Sodium Potassium Chloride Carbon Dioxide BUN Glucose POC Glucose Lactic Acid 4.50 H* Calcium Magnesium Total Bilirubin Direct Bilirubin AST ALT Alkaline Phosphatase CK-MB (CK-2) 5.1 H CK-MB (CK-2) Rel Index 4.9 H Troponin T 0.187 H* Total Protein Albumin Cholesterol 42 L LDL Cholesterol Direct 5 L HDL Cholesterol 22 L Urine WBC (Auto) 01/19/18 01/19/18 01/19/18 17:55 18:10 19:00 RBC Hgb Hct MCV MCH RDW Plt Count Seg Neuts % (Manual) Lymphocytes % (Manual) Seg Neutrophils # Man Lymphocytes # (Manual) PT INR ABG pH 7.486 H ABG pO2 420.1 H ABG HCO3 31.3 H ABG O2 Saturation 99.6 H ABG Base Excess 7.2 H ABG Hemoglobin 11.0 L VBG pH Oxyhemoglobin Sodium Potassium Chloride Carbon Dioxide BUN Glucose POC Glucose 114 H Lactic Acid Calcium Magnesium Total Bilirubin Direct Bilirubin AST ALT Alkaline Phosphatase CK-MB (CK-2) CK-MB (CK-2) Rel Index Troponin T Total Protein Albumin Cholesterol LDL Cholesterol Direct HDL Cholesterol Urine WBC (Auto) 44.0 H 01/19/18 01/19/18 01/19/18 19:47 21:30 Unknown RBC Hgb Hct MCV MCH RDW Plt Count Seg Neuts % (Manual) Lymphocytes % (Manual) Seg Neutrophils # Man Lymphocytes # (Manual) PT INR ABG pH ABG pO2 ABG HCO3 ABG O2 Saturation ABG Base Excess ABG Hemoglobin VBG pH Oxyhemoglobin Sodium Potassium Chloride Carbon Dioxide BUN Glucose POC Glucose Lactic Acid 3.60 H* 3.60 H* Calcium Magnesium 0.20 L* Total Bilirubin Direct Bilirubin AST ALT Alkaline Phosphatase CK-MB (CK-2) CK-MB (CK-2) Rel Index Troponin T Total Protein Albumin Cholesterol LDL Cholesterol Direct HDL Cholesterol Urine WBC (Auto) 01/20/18 01/20/18 01/20/18 03:50 04:02 04:02 RBC Hgb 14.7 H D Hct 45.2 H D MCV 101 H MCH 33 H RDW 17.3 H Plt Count 73 L Seg Neuts % (Manual) 89.0 H Lymphocytes % (Manual) 6.0 L Seg Neutrophils # Man Lymphocytes # (Manual) 0.3 L PT INR ABG pH 7.507 H ABG pO2 133.5 H ABG HCO3 ABG O2 Saturation ABG Base Excess ABG Hemoglobin VBG pH Oxyhemoglobin Sodium 136 L Potassium Chloride 95.2 L Carbon Dioxide BUN 18 H Glucose 189 H POC Glucose Lactic Acid Calcium 7.8 L Magnesium Total Bilirubin 2.00 H Direct Bilirubin AST 1717 H ALT 970 H Alkaline Phosphatase 169 H CK-MB (CK-2) CK-MB (CK-2) Rel Index Troponin T Total Protein 4.6 L D Albumin 2.0 L Cholesterol LDL Cholesterol Direct HDL Cholesterol Urine WBC (Auto) 01/20/18 01/20/18 01/20/18 04:02 08:00 08:10 RBC Hgb Hct MCV 100 H MCH RDW 17.1 H Plt Count Seg Neuts % (Manual) Lymphocytes % (Manual) Seg Neutrophils # Man Lymphocytes # (Manual) PT INR ABG pH ABG pO2 ABG HCO3 ABG O2 Saturation ABG Base Excess ABG Hemoglobin VBG pH Oxyhemoglobin Sodium Potassium Chloride Carbon Dioxide BUN Glucose POC Glucose Lactic Acid 4.10 H* 5.10 H* Calcium Magnesium Total Bilirubin Direct Bilirubin AST ALT Alkaline Phosphatase CK-MB (CK-2) CK-MB (CK-2) Rel Index Troponin T Total Protein Albumin Cholesterol LDL Cholesterol Direct HDL Cholesterol Urine WBC (Auto) 01/20/18 01/20/18 01/20/18 10:03 14:34 Unknown RBC Hgb Hct MCV MCH RDW Plt Count Seg Neuts % (Manual) Lymphocytes % (Manual) Seg Neutrophils # Man Lymphocytes # (Manual) PT INR ABG pH ABG pO2 ABG HCO3 ABG O2 Saturation ABG Base Excess ABG Hemoglobin VBG pH Oxyhemoglobin Sodium Potassium Chloride Carbon Dioxide BUN Glucose POC Glucose 130 H 152 H Lactic Acid 3.70 H* Calcium Magnesium Total Bilirubin Direct Bilirubin AST ALT Alkaline Phosphatase CK-MB (CK-2) CK-MB (CK-2) Rel Index Troponin T Total Protein Albumin Cholesterol LDL Cholesterol Direct HDL Cholesterol Urine WBC (Auto) 01/21/18 01/21/18 01/21/18 02:22 05:00 05:00 RBC 3.19 L Hgb Hct MCV 99 H MCH 33 H RDW 17.5 H Plt Count 133 L Seg Neuts % (Manual) 84.0 H Lymphocytes % (Manual) 8.0 L Seg Neutrophils # Man 8.2 H Lymphocytes # (Manual) 0.8 L PT INR ABG pH ABG pO2 ABG HCO3 ABG O2 Saturation ABG Base Excess ABG Hemoglobin VBG pH Oxyhemoglobin Sodium Potassium Chloride Carbon Dioxide 17 L BUN 19 H Glucose 129 H POC Glucose 63 L Lactic Acid Calcium 6.0 L D Magnesium Total Bilirubin Direct Bilirubin AST ALT Alkaline Phosphatase CK-MB (CK-2) CK-MB (CK-2) Rel Index Troponin T Total Protein Albumin Cholesterol LDL Cholesterol Direct HDL Cholesterol Urine WBC (Auto) 01/21/18 01/21/18 01/21/18 05:00 07:15 10:20 RBC Hgb Hct MCV MCH RDW Plt Count Seg Neuts % (Manual) Lymphocytes % (Manual) Seg Neutrophils # Man Lymphocytes # (Manual) PT INR ABG pH ABG pO2 58.6 L ABG HCO3 15.6 L ABG O2 Saturation 91.4 L ABG Base Excess -6.8 L ABG Hemoglobin 11.6 L VBG pH Oxyhemoglobin 89.9 L Sodium Potassium Chloride Carbon Dioxide BUN Glucose POC Glucose Lactic Acid 3.70 H* Calcium Magnesium Total Bilirubin Direct Bilirubin 0.9 H AST 587 H ALT 556 H Alkaline Phosphatase 154 H CK-MB (CK-2) CK-MB (CK-2) Rel Index Troponin T Total Protein 3.5 L D Albumin 1.5 L Cholesterol LDL Cholesterol Direct HDL Cholesterol Urine WBC (Auto) 01/21/18 01/21/18 01/21/18 10:45 14:27 17:14 RBC Hgb Hct MCV MCH RDW Plt Count Seg Neuts % (Manual) Lymphocytes % (Manual) Seg Neutrophils # Man Lymphocytes # (Manual) PT 21.9 H INR 1.79 H ABG pH ABG pO2 ABG HCO3 ABG O2 Saturation ABG Base Excess ABG Hemoglobin VBG pH Oxyhemoglobin Sodium Potassium Chloride Carbon Dioxide BUN Glucose POC Glucose 122 H 48 L Lactic Acid Calcium Magnesium Total Bilirubin Direct Bilirubin AST ALT Alkaline Phosphatase CK-MB (CK-2) CK-MB (CK-2) Rel Index Troponin T Total Protein Albumin Cholesterol LDL Cholesterol Direct HDL Cholesterol Urine WBC (Auto) 01/21/18 01/21/18 01/21/18 17:58 18:35 18:45 RBC Hgb Hct MCV MCH RDW Plt Count Seg Neuts % (Manual) Lymphocytes % (Manual) Seg Neutrophils # Man Lymphocytes # (Manual) PT INR ABG pH ABG pO2 ABG HCO3 ABG O2 Saturation ABG Base Excess ABG Hemoglobin VBG pH Oxyhemoglobin Sodium Potassium Chloride Carbon Dioxide BUN Glucose 363 H POC Glucose 41 L 45 L Lactic Acid Calcium Magnesium Total Bilirubin Direct Bilirubin AST ALT Alkaline Phosphatase CK-MB (CK-2) CK-MB (CK-2) Rel Index Troponin T Total Protein Albumin Cholesterol LDL Cholesterol Direct HDL Cholesterol Urine WBC (Auto) 01/21/18 01/22/18 01/22/18 21:55 03:11 11:12 RBC Hgb Hct MCV MCH RDW Plt Count Seg Neuts % (Manual) Lymphocytes % (Manual) Seg Neutrophils # Man Lymphocytes # (Manual) PT INR ABG pH ABG pO2 ABG HCO3 ABG O2 Saturation ABG Base Excess ABG Hemoglobin VBG pH Oxyhemoglobin Sodium Potassium Chloride Carbon Dioxide BUN Glucose POC Glucose 245 H 247 H 199 H Lactic Acid Calcium Magnesium Total Bilirubin Direct Bilirubin AST ALT Alkaline Phosphatase CK-MB (CK-2) CK-MB (CK-2) Rel Index Troponin T Total Protein Albumin Cholesterol LDL Cholesterol Direct HDL Cholesterol Urine WBC (Auto)
--- NOTE | 2018-01-22 17:44 | Progress Note ---
Assessment and Plan Assessment and plan: 82 YO Female Senior Care Resident with HTN, DM, HLD, SIADH, presents to ED for evaluation. Pt is stuporous on exam and unable to provide history. Pt history taken from medical record, ED Staff, and EMS. As per EMS, the patient was found to have agonal breathing in the field, as was transported to [facility] for further care and evaluation. Pt seen and evaluated in ED and found to be hypotensive with systolic BP in the 40's, secondary to Septic shock. Pt also found to have evidence of early shock liver, as well as elevated troponin which is suspected secondary to hypoperfusion. Pt found to be in acute respiratory failure. Pt intubated and placed on vent support. No further history is provided. Pt admitted to ICU. Pulmonary team consulted. Pt found to have poor prognosis. Septic shock - Patient is on pressors, IV azithromycin, and vancomycin Acute hypoxic respiratory failure, patient was not able to take care of her otherwise - Patient is intubated and on mechanical ventilation - Pulmonary arteries following Acute metabolic encephalopathy - don't know base line Patient has very poor prognosis Disposition - Continue ICU care Patient admitted for septic shock and pressor support max out and no family member was in the room to discuss with the management plan, patient was in custodial for the last 20 years and I have discussed with ethics committee and patient is currently AND. The high probability of a clinically significant, sudden or life threatening deterioration of the [CV, neurology, repiratory] system(s) required my full and direct attention, intervention and personal management. The aggregate critical care time was [34] minutes. This time is in addition to time spent performing reported procedures but includes the following: [x] Data Review and interpretation [x] Patient assessment and monitoring of vital signs [x] Documentation [x] Medication orders and management History Interval history: Patient was seen and evaluated this morning, patient was intubated on mechanical ventilation, patient is non-communicative. No family member was in the room to discuss the management plan. I have discussed with ethics committee and decided to make her at AND Hospitalist Physical - Physical exam Narrative exam: Patient is intubated and on mechanical ventilation The patient appeared well nourished and normally developed. Vital signs as documented. Head exam is unremarkable. No scleral icterus . Neck is without jugular venous distension, thyromegaly, or carotid bruits. Lungs are clear to auscultation. Cardiac exam reveals regular rate and Rhythm. First and second heart sounds normal. No murmurs, rubs or gallops. Abdominal exam reveals normal bowel sounds, no masses, no organomegaly and no aortic enlargement. Extremities are nonedematous and both femoral and pedal pulses are normal. ELECTRIC CELL TENDER: Patient is comatose. - Constitutional Vitals: Temp Pulse Resp BP Pulse Ox 98.1 F 127 H 32 H 63/34 85 01/22/18 15:59 01/22/18 17:16 01/22/18 17:16 01/22/18 17:16 01/22/18 10:30 General appearance: Present: severe distress, disheveled Results - Labs CBC & Chem 7: 01/21/18 05:00 01/21/18 18:45 Labs: Laboratory Last Values WBC 9.8 K/mm3 (4.5-11.0) 01/21/18 05:00 RBC 3.19 M/mm3 (3.65-5.03) L 01/21/18 05:00 Hgb 10.6 gm/dl (10.1-14.3) 01/21/18 05:00 Hct 31.6 % (30.3-42.9) D 01/21/18 05:00 MCV 99 fl (79-97) H 01/21/18 05:00 MCH 33 pg (28-32) H 01/21/18 05:00 MCHC 34 % (30-34) 01/21/18 05:00 RDW 17.5 % (13.2-15.2) H 01/21/18 05:00 Plt Count 133 K/mm3 (140-440) L 01/21/18 05:00 Lymph % (Auto) Data Base Administrator 01/20/18 04:02 [place] % (Auto) Data Base Administrator 01/20/18 04:02 Eos % (Auto) Data Base Administrator 01/20/18 04:02 Baso % (Auto) Data Base Administrator 01/20/18 04:02 Lymph # Data Base Administrator 01/20/18 04:02 [place] # Data Base Administrator 01/20/18 04:02 Eos # Data Base Administrator 01/20/18 04:02 Baso # Data Base Administrator 01/20/18 04:02 Add Manual Diff Complete 01/21/18 05:00 Total Counted 100 01/21/18 05:00 Seg Neutrophils % Data Base Administrator 01/20/18 04:02 Seg Neuts % (Manual) 84.0 % (40.0-70.0) H 01/21/18 05:00 Band Neutrophils % 6.0 % 01/21/18 05:00 Lymphocytes % (Manual) 8.0 % (13.4-35.0) L 01/21/18 05:00 Reactive Lymphs % (Man) 0 % 01/21/18 05:00 Monocytes % (Manual) 2.0 % (0.0-7.3) 01/21/18 05:00 Eosinophils % (Manual) 0 % (0.0-4.3) 01/21/18 05:00 Basophils % (Manual) 0 % (0.0-1.8) 01/21/18 05:00 Metamyelocytes % 0 % 01/21/18 05:00 Myelocytes % 0 % 01/21/18 05:00 Promyelocytes % 0 % 01/21/18 05:00 Blast Cells % 0 % 01/21/18 05:00 Nucleated RBC % Not Reportable 01/21/18 05:00 Seg Neutrophils # Data Base Administrator 01/20/18 04:02 Seg Neutrophils # Man 8.2 K/mm3 (1.8-7.7) H 01/21/18 05:00 Band Neutrophils # 0.6 K/mm3 01/21/18 05:00 Lymphocytes # (Manual) 0.8 K/mm3 (1.2-5.4) L 01/21/18 05:00 Abs React Lymphs (Man) 0.0 K/mm3 01/21/18 05:00 Monocytes # (Manual) 0.2 K/mm3 (0.0-0.8) 01/21/18 05:00 Eosinophils # (Manual) 0.0 K/mm3 (0.0-0.4) 01/21/18 05:00 Basophils # (Manual) 0.0 K/mm3 (0.0-0.1) 01/21/18 05:00 Metamyelocytes # 0.0 K/mm3 01/21/18 05:00 Myelocytes # 0.0 K/mm3 01/21/18 05:00 Promyelocytes # 0.0 K/mm3 01/21/18 05:00 Blast Cells # 0.0 K/mm3 01/21/18 05:00 WBC Morphology Not Reportable 01/21/18 05:00 Hypersegmented Neuts Not Reportable 01/21/18 05:00 Hyposegmented Neuts Not Reportable 01/21/18 05:00 Hypogranular Neuts Not Reportable 01/21/18 05:00 Smudge Cells Not Reportable 01/21/18 05:00 Toxic Granulation Not Reportable 01/21/18 05:00 Toxic Vacuolation Not Reportable 01/21/18 05:00 Dohle Bodies Not Reportable 01/21/18 05:00 Pelger-Huet Anomaly Not Reportable 01/21/18 05:00 Toribio Rods Not Reportable 01/21/18 05:00 Platelet Estimate Consistent w auto 01/21/18 05:00 Clumped Platelets Not Reportable 01/21/18 05:00 Plt Clumps, EDTA Not Reportable 01/21/18 05:00 Large Platelets Not Reportable 01/21/18 05:00 Giant Platelets Not Reportable 01/21/18 05:00 Platelet Satelliting Not Reportable 01/21/18 05:00 Plt Morphology Comment Not Reportable 01/21/18 05:00 RBC Morphology Normal 01/21/18 05:00 Dimorphic RBCs Not Reportable 01/21/18 05:00 Polychromasia Not Reportable 01/21/18 05:00 Hypochromasia Not Reportable 01/21/18 05:00 Poikilocytosis Not Reportable 01/21/18 05:00 Anisocytosis Not Reportable 01/21/18 05:00 Microcytosis Not Reportable 01/21/18 05:00 Macrocytosis Not Reportable 01/21/18 05:00 Spherocytes Not Reportable 01/21/18 05:00 Pappenheimer Bodies Not Reportable 01/21/18 05:00 Sickle Cells Not Reportable 01/21/18 05:00 Target Cells Not Reportable 01/21/18 05:00 Tear Drop Cells Not Reportable 01/21/18 05:00 Ovalocytes Not Reportable 01/21/18 05:00 Helmet Cells Not Reportable 01/21/18 05:00 Perkins-Medford Bodies Not Reportable 01/21/18 05:00 Nunez Rings Not Reportable 01/21/18 05:00 [place] Cells Not Reportable 01/21/18 05:00 Bite Cells Not Reportable 01/21/18 05:00 Crenated Cell Not Reportable 01/21/18 05:00 Elliptocytes Not Reportable 01/21/18 05:00 Acanthocytes (Spur) Not Reportable 01/21/18 05:00 Rouleaux Not Reportable 01/21/18 05:00 Hemoglobin C Crystals Not Reportable 01/21/18 05:00 Schistocytes Not Reportable 01/21/18 05:00 Malaria parasites Not Reportable 01/21/18 05:00 Fran Bodies Not Reportable 01/21/18 05:00 Hem Pathologist Commnt No 01/21/18 05:00 PT 21.9 Sec. (12.2-14.9) H 01/21/18 10:45 INR 1.79 (0.87-1.13) H 01/21/18 10:45 APTT 35.3 Sec. (24.2-36.6) 01/21/18 10:45 ABG pH 7.443 pH Units (7.350-7.450) 01/21/18 10:20 ABG pCO2 23.4 mm Hg 01/21/18 10:20 ABG pO2 58.6 mm Hg (80.0-90.0) L 01/21/18 10:20 ABG HCO3 15.6 mmol/L (20.0-26.0) L 01/21/18 10:20 ABG O2 Saturation 91.4 % (95.0-99.0) L 01/21/18 10:20 ABG O2 Content 14.7 (0.0-44) 01/21/18 10:20 ABG Base Excess -6.8 mmol/L (-2.0-3.0) L 01/21/18 10:20 ABG Hemoglobin 11.6 gm/dl (12.0-16.0) L 01/21/18 10:20 ABG Carboxyhemoglobin 1.1 % (0.0-5.0) 01/21/18 10:20 ABG Methemoglobin 0.5 % (0.0-1.5) 01/21/18 10:20 VBG pH 7.447 (7.320-7.420) H 01/19/18 17:40 Oxyhemoglobin 89.9 % (95.0-99.0) L 01/21/18 10:20 FiO2 30 % 01/21/18 10:20 Sodium 139 mmol/L (137-145) 01/21/18 05:00 Potassium 3.7 mmol/L (3.6-5.0) 01/21/18 05:00 Chloride 104.9 mmol/L (98-107) 01/21/18 05:00 Carbon Dioxide 17 mmol/L (22-30) L 01/21/18 05:00 Anion Gap 21 mmol/L 01/21/18 05:00 BUN 19 mg/dL (7-17) H 01/21/18 05:00 Creatinine 0.7 mg/dL (0.7-1.2) 01/21/18 05:00 Estimated GFR > 60 ml/min 01/21/18 05:00 BUN/Creatinine Ratio 27 % 01/21/18 05:00 Glucose 363 mg/dL (65-100) H 01/21/18 18:45 POC Glucose 139 (70-105) H 01/22/18 13:57 Lactic Acid 3.70 mmol/L (0.7-2.0) H* 01/21/18 07:15 Calcium 6.0 mg/dL (8.4-10.2) L D 01/21/18 05:00 Magnesium 0.20 mg/dL (1.7-2.3) L* 01/19/18 Unknown Total Bilirubin 1.20 mg/dL (0.1-1.2) 01/21/18 05:00 Direct Bilirubin 0.9 mg/dL (0-0.2) H 01/21/18 05:00 Indirect Bilirubin 0.3 mg/dL 01/21/18 05:00 AST 587 units/L (5-40) H 01/21/18 05:00 ALT 556 units/L (7-56) H 01/21/18 05:00 Alkaline Phosphatase 154 units/L (35-129) H 01/21/18 05:00 Total Creatine Kinase 87 units/L (30-135) 01/19/18 Unknown CK-MB (CK-2) 5.1 ng/mL (0.0-4.0) H 01/19/18 17:40 CK-MB (CK-2) Rel Index 4.9 (0-4) H 01/19/18 17:40 Troponin T 0.187 ng/mL (0.00-0.029) H* 01/19/18 17:40 NT-Pro-B Natriuret Pep 816.0 pg/mL (0-900) 01/19/18 17:40 Total Protein 3.5 g/dL (6.3-8.2) L D 01/21/18 05:00 Albumin 1.5 g/dL (3.9-5) L 01/21/18 05:00 Albumin/Globulin Ratio 0.8 % 01/21/18 05:00 Triglycerides 76 mg/dL (2-149) 01/19/18 17:40 Cholesterol 42 mg/dL (50-199) L 01/19/18 17:40 LDL Cholesterol Direct 5 mg/dL (50-130) L 01/19/18 17:40 HDL Cholesterol 22 mg/dL (40-59) L 01/19/18 17:40 Cholesterol/HDL Ratio 1.90 % 01/19/18 17:40 Urine Color Chasidy (Yellow) 01/19/18 17:55 Urine Turbidity Cloudy (Clear) 01/19/18 17:55 Urine pH 5.0 (5.0-7.0) 01/19/18 17:55 Ur Specific [place] 1.013 (1.003-1.030) 01/19/18 17:55 Urine Protein <15 mg/dl mg/dL (Negative) 01/19/18 17:55 Urine Glucose (UA) Neg mg/dL (Negative) 01/19/18 17:55 Urine Ketones Neg mg/dL (Negative) 01/19/18 17:55 Urine Blood Sm (Negative) 01/19/18 17:55 Urine Nitrite Neg (Negative) 01/19/18 17:55 Urine Bilirubin Neg (Negative) 01/19/18 17:55 Urine Urobilinogen 4.0 mg/dL (<2.0) 01/19/18 17:55 Ur Leukocyte Esterase Mod (Negative) 01/19/18 17:55 Urine WBC (Auto) 44.0 /HPF (0.0-6.0) H 01/19/18 17:55 Urine RBC (Auto) 68.0 /HPF (0.0-6.0) 01/19/18 17:55 U Epithel Cells (Auto) < 1.0 /HPF (0-13.0) 01/19/18 17:55 Urine Bacteria (Auto) 2+ /HPF (Negative) 01/19/18 17:55 Urine WBC Clumps 3+ /HPF 01/19/18 17:55 Hyaline Casts 8 /LPF 01/19/18 17:55 Urine Mucus 2+ /HPF 01/19/18 17:55 Blood Type O POSITIVE 01/19/18 20:57 Antibody Screen Negative 01/19/18 20:57
[2018-01-22] MEDS ORDERED: NACL 0.9% 1000 ML 1,000 ML ONE (22:25)
[2018-01-23] MEDS: LEVOPHED 8 MG in NACL 0.9% 250ML 242 ML IV SCH ×5 (05:35→22:52)
[2018-01-23] MEDS: AZACTAM 1,000 MG in NACL 0.9% 20 ML IV SCH ×3 (05:36→22:44)
[2018-01-23] MEDS ORDERED: VANCOMYCIN/0.45 NS 1 GM/250 ML 1 GM/250 ML BAG IV SCH (10:00)
[2018-01-23] MEDS: D50W (25GM) Syringe IV PRN (10:04)
[2018-01-23] MEDS: HEPARIN SUB-Q SCH ×2 (10:04→22:27)
[2018-01-23] MEDS: PEPCID IV SCH (10:04)
--- NOTE | 2018-01-23 14:57 | Progress Note ---
Assessment and Plan 82 y/o female with acute hypoxemic respiratory failure, thought secondary to altered mental state, secondary to sepsis with shock, possible source being urine now with thrombocytopenia and hypothermia and shock liver. 1. Pulm- remains intubated, no sedation. 2. CV- Tachycardia and persistent hypotension. More hypotensive, more tachy. Still on pressor therapy. Not weaning given AND status. This needs to be changed in the computer. No further escalation of care. Stopped Hydrocortisone. Placed ultrasound to check 4 chamber view of heart, still beating. Also dopplered neck but very weak pulse. 3. GI- shock liver, secondary to hypotension. No with worsening blood sugar. Could be from fulminant liver failure. Repeating labs this am and started on steroids and D5W drip. 4. ID- Dirty UA, could be cause of sepsis with shock. Currently on broad spec abx, therapy. May need to re-evaluate this. Continue serial lactic acids. Now with kleib in sputum. 5. Overall prognosis is guarded to poor. CCT 31 minutes. Subjective Date of service: 01/23/18 Interval history: Still on vasopressor therapy. Pulse is very thready. Patient is ashen. Still breathing over the vent. At times unable to detect BP with cough. Objective Vital Signs - 12hr 01/23/18 01/23/18 01/23/18 03:00 03:16 03:30 Temperature Pulse Rate 189 H 142 H 186 H Respiratory 31 H 31 H 31 H Rate Blood Pressure 114/15 115/64 115/64 O2 Sat by Pulse Oximetry 01/23/18 01/23/18 01/23/18 03:46 04:00 04:16 Temperature 98.2 F Pulse Rate 160 H 152 H 186 H Respiratory 32 H 30 H 29 H Rate Blood Pressure 132/12 132/12 108/13 O2 Sat by Pulse Oximetry 01/23/18 01/23/18 01/23/18 04:27 04:30 04:46 Temperature Pulse Rate 172 H 175 H Respiratory 30 H 30 H Rate Blood Pressure 108/13 111/49 111/49 O2 Sat by Pulse 94 66 L 82 L Oximetry 01/23/18 01/23/18 01/23/18 05:00 05:16 05:30 Temperature Pulse Rate 181 H 178 H 158 H Respiratory 31 H 29 H 30 H Rate Blood Pressure 111/49 111/49 111/49 O2 Sat by Pulse Oximetry 01/23/18 01/23/18 01/23/18 05:46 06:00 06:16 Temperature Pulse Rate 189 H 176 H 170 H Respiratory 28 H 27 H 27 H Rate Blood Pressure 111/49 59/36 59/36 O2 Sat by Pulse Oximetry 01/23/18 01/23/18 01/23/18 06:30 06:46 07:00 Temperature Pulse Rate 169 H 147 H 186 H Respiratory 27 H 28 H 29 H Rate Blood Pressure 59/36 59/36 59/36 O2 Sat by Pulse Oximetry 01/23/18 01/23/18 01/23/18 07:16 07:30 07:46 Temperature Pulse Rate 162 H 156 H 161 H Respiratory 29 H 28 H 28 H Rate Blood Pressure 55/34 55/34 55/34 O2 Sat by Pulse Oximetry 01/23/18 01/23/18 01/23/18 08:00 08:12 08:16 Temperature 98.9 F Pulse Rate 164 H 169 H 163 H Respiratory 29 H 29 H Rate Blood Pressure 55/34 55/34 55/34 O2 Sat by Pulse Oximetry 01/23/18 01/23/18 01/23/18 08:30 08:46 09:00 Temperature Pulse Rate 173 H 158 H 149 H Respiratory 30 H 29 H 29 H Rate Blood Pressure 55/34 55/34 86/41 O2 Sat by Pulse Oximetry 01/23/18 01/23/18 01/23/18 09:16 09:30 09:46 Temperature Pulse Rate 158 H 160 H 159 H Respiratory 28 H 28 H 25 H Rate Blood Pressure 86/41 86/41 86/41 O2 Sat by Pulse Oximetry 01/23/18 01/23/18 01/23/18 10:00 10:16 10:30 Temperature Pulse Rate 126 H 129 H 110 H Respiratory 23 25 H 26 H Rate Blood Pressure 86/41 86/41 O2 Sat by Pulse Oximetry 01/23/18 01/23/18 01/23/18 10:46 11:00 11:16 Temperature Pulse Rate 178 H 184 H 146 H Respiratory 27 H 26 H 27 H Rate Blood Pressure 158/45 O2 Sat by Pulse Oximetry 01/23/18 01/23/18 01/23/18 11:30 12:00 12:42 Temperature 99.0 F Pulse Rate 176 H 170 H Respiratory 27 H Rate Blood Pressure 158/45 O2 Sat by Pulse Oximetry Constitutional: comatose Eyes: non-icteric ENT: other (orally intubated, not on sedation) Neck: supple, no JVD Effort: mildly labored Ascultation: Bilateral: diminished breath sounds, rhonchi Percussion: Bilateral: not dull Tactile fremitus: Bilateral: normal Cardiovascular: other (tachycardia) Gastrointestinal: normoactive bowel sounds, soft Extremities: no edema Neurologic: unable to assess CBC and BMP: 01/21/18 05:00 01/23/18 09:43 ABG, PT/INR, D-dimer: ABG ABG pH 7.443 pH Units (7.350-7.450) 01/21/18 10:20 ABG pCO2 23.4 mm Hg 01/21/18 10:20 ABG pO2 58.6 mm Hg (80.0-90.0) L 01/21/18 10:20 ABG O2 Saturation 91.4 % (95.0-99.0) L 01/21/18 10:20 PT/INR, D-dimer PT 21.9 Sec. (12.2-14.9) H 01/21/18 10:45 INR 1.79 (0.87-1.13) H 01/21/18 10:45 Abnormal lab findings: Abnormal Labs 01/19/18 01/19/18 01/19/18 17:40 17:40 17:40 RBC 2.91 L Hgb 9.5 L Hct 29.1 L MCV 100 H MCH 33 H RDW 17.0 H Plt Count Seg Neuts % (Manual) 95.0 H Lymphocytes % (Manual) 3.0 L Seg Neutrophils # Man Lymphocytes # (Manual) 0.2 L PT 23.9 H INR 1.99 H ABG pH ABG pO2 ABG HCO3 ABG O2 Saturation ABG Base Excess ABG Hemoglobin VBG pH Oxyhemoglobin Sodium Potassium 2.7 L* Chloride 90.1 L Carbon Dioxide 32 H BUN 21 H Glucose 142 H POC Glucose Lactic Acid Calcium Magnesium Total Bilirubin 1.30 H Direct Bilirubin AST 1592 H ALT 632 H Alkaline Phosphatase CK-MB (CK-2) CK-MB (CK-2) Rel Index Troponin T Total Protein 3.5 L Albumin 1.5 L Cholesterol LDL Cholesterol Direct HDL Cholesterol Urine WBC (Auto) 01/19/18 01/19/18 01/19/18 17:40 17:40 17:40 RBC Hgb Hct MCV MCH RDW Plt Count Seg Neuts % (Manual) Lymphocytes % (Manual) Seg Neutrophils # Man Lymphocytes # (Manual) PT INR ABG pH ABG pO2 ABG HCO3 ABG O2 Saturation ABG Base Excess ABG Hemoglobin VBG pH 7.447 H Oxyhemoglobin Sodium Potassium Chloride Carbon Dioxide BUN Glucose POC Glucose Lactic Acid 4.50 H* Calcium Magnesium Total Bilirubin Direct Bilirubin AST ALT Alkaline Phosphatase CK-MB (CK-2) 5.1 H CK-MB (CK-2) Rel Index 4.9 H Troponin T 0.187 H* Total Protein Albumin Cholesterol 42 L LDL Cholesterol Direct 5 L HDL Cholesterol 22 L Urine WBC (Auto) 01/19/18 01/19/18 01/19/18 17:55 18:10 19:00 RBC Hgb Hct MCV MCH RDW Plt Count Seg Neuts % (Manual) Lymphocytes % (Manual) Seg Neutrophils # Man Lymphocytes # (Manual) PT INR ABG pH 7.486 H ABG pO2 420.1 H ABG HCO3 31.3 H ABG O2 Saturation 99.6 H ABG Base Excess 7.2 H ABG Hemoglobin 11.0 L VBG pH Oxyhemoglobin Sodium Potassium Chloride Carbon Dioxide BUN Glucose POC Glucose 114 H Lactic Acid Calcium Magnesium Total Bilirubin Direct Bilirubin AST ALT Alkaline Phosphatase CK-MB (CK-2) CK-MB (CK-2) Rel Index Troponin T Total Protein Albumin Cholesterol LDL Cholesterol Direct HDL Cholesterol Urine WBC (Auto) 44.0 H 01/19/18 01/19/18 01/19/18 19:47 21:30 Unknown RBC Hgb Hct MCV MCH RDW Plt Count Seg Neuts % (Manual) Lymphocytes % (Manual) Seg Neutrophils # Man Lymphocytes # (Manual) PT INR ABG pH ABG pO2 ABG HCO3 ABG O2 Saturation ABG Base Excess ABG Hemoglobin VBG pH Oxyhemoglobin Sodium Potassium Chloride Carbon Dioxide BUN Glucose POC Glucose Lactic Acid 3.60 H* 3.60 H* Calcium Magnesium 0.20 L* Total Bilirubin Direct Bilirubin AST ALT Alkaline Phosphatase CK-MB (CK-2) CK-MB (CK-2) Rel Index Troponin T Total Protein Albumin Cholesterol LDL Cholesterol Direct HDL Cholesterol Urine WBC (Auto) 01/20/18 01/20/18 01/20/18 03:50 04:02 04:02 RBC Hgb 14.7 H D Hct 45.2 H D MCV 101 H MCH 33 H RDW 17.3 H Plt Count 73 L Seg Neuts % (Manual) 89.0 H Lymphocytes % (Manual) 6.0 L Seg Neutrophils # Man Lymphocytes # (Manual) 0.3 L PT INR ABG pH 7.507 H ABG pO2 133.5 H ABG HCO3 ABG O2 Saturation ABG Base Excess ABG Hemoglobin VBG pH Oxyhemoglobin Sodium 136 L Potassium Chloride 95.2 L Carbon Dioxide BUN 18 H Glucose 189 H POC Glucose Lactic Acid Calcium 7.8 L Magnesium Total Bilirubin 2.00 H Direct Bilirubin AST 1717 H ALT 970 H Alkaline Phosphatase 169 H CK-MB (CK-2) CK-MB (CK-2) Rel Index Troponin T Total Protein 4.6 L D Albumin 2.0 L Cholesterol LDL Cholesterol Direct HDL Cholesterol Urine WBC (Auto) 01/20/18 01/20/18 01/20/18 04:02 08:00 08:10 RBC Hgb Hct MCV 100 H MCH RDW 17.1 H Plt Count Seg Neuts % (Manual) Lymphocytes % (Manual) Seg Neutrophils # Man Lymphocytes # (Manual) PT INR ABG pH ABG pO2 ABG HCO3 ABG O2 Saturation ABG Base Excess ABG Hemoglobin VBG pH Oxyhemoglobin Sodium Potassium Chloride Carbon Dioxide BUN Glucose POC Glucose Lactic Acid 4.10 H* 5.10 H* Calcium Magnesium Total Bilirubin Direct Bilirubin AST ALT Alkaline Phosphatase CK-MB (CK-2) CK-MB (CK-2) Rel Index Troponin T Total Protein Albumin Cholesterol LDL Cholesterol Direct HDL Cholesterol Urine WBC (Auto) 01/20/18 01/20/18 01/20/18 10:03 14:34 Unknown RBC Hgb Hct MCV MCH RDW Plt Count Seg Neuts % (Manual) Lymphocytes % (Manual) Seg Neutrophils # Man Lymphocytes # (Manual) PT INR ABG pH ABG pO2 ABG HCO3 ABG O2 Saturation ABG Base Excess ABG Hemoglobin VBG pH Oxyhemoglobin Sodium Potassium Chloride Carbon Dioxide BUN Glucose POC Glucose 130 H 152 H Lactic Acid 3.70 H* Calcium Magnesium Total Bilirubin Direct Bilirubin AST ALT Alkaline Phosphatase CK-MB (CK-2) CK-MB (CK-2) Rel Index Troponin T Total Protein Albumin Cholesterol LDL Cholesterol Direct HDL Cholesterol Urine WBC (Auto) 01/21/18 01/21/18 01/21/18 02:22 05:00 05:00 RBC 3.19 L Hgb Hct MCV 99 H MCH 33 H RDW 17.5 H Plt Count 133 L Seg Neuts % (Manual) 84.0 H Lymphocytes % (Manual) 8.0 L Seg Neutrophils # Man 8.2 H Lymphocytes # (Manual) 0.8 L PT INR ABG pH ABG pO2 ABG HCO3 ABG O2 Saturation ABG Base Excess ABG Hemoglobin VBG pH Oxyhemoglobin Sodium Potassium Chloride Carbon Dioxide 17 L BUN 19 H Glucose 129 H POC Glucose 63 L Lactic Acid Calcium 6.0 L D Magnesium Total Bilirubin Direct Bilirubin AST ALT Alkaline Phosphatase CK-MB (CK-2) CK-MB (CK-2) Rel Index Troponin T Total Protein Albumin Cholesterol LDL Cholesterol Direct HDL Cholesterol Urine WBC (Auto) 01/21/18 01/21/18 01/21/18 05:00 07:15 10:20 RBC Hgb Hct MCV MCH RDW Plt Count Seg Neuts % (Manual) Lymphocytes % (Manual) Seg Neutrophils # Man Lymphocytes # (Manual) PT INR ABG pH ABG pO2 58.6 L ABG HCO3 15.6 L ABG O2 Saturation 91.4 L ABG Base Excess -6.8 L ABG Hemoglobin 11.6 L VBG pH Oxyhemoglobin 89.9 L Sodium Potassium Chloride Carbon Dioxide BUN Glucose POC Glucose Lactic Acid 3.70 H* Calcium Magnesium Total Bilirubin Direct Bilirubin 0.9 H AST 587 H ALT 556 H Alkaline Phosphatase 154 H CK-MB (CK-2) CK-MB (CK-2) Rel Index Troponin T Total Protein 3.5 L D Albumin 1.5 L Cholesterol LDL Cholesterol Direct HDL Cholesterol Urine WBC (Auto) 01/21/18 01/21/18 01/21/18 10:45 14:27 17:14 RBC Hgb Hct MCV MCH RDW Plt Count Seg Neuts % (Manual) Lymphocytes % (Manual) Seg Neutrophils # Man Lymphocytes # (Manual) PT 21.9 H INR 1.79 H ABG pH ABG pO2 ABG HCO3 ABG O2 Saturation ABG Base Excess ABG Hemoglobin VBG pH Oxyhemoglobin Sodium Potassium Chloride Carbon Dioxide BUN Glucose POC Glucose 122 H 48 L Lactic Acid Calcium Magnesium Total Bilirubin Direct Bilirubin AST ALT Alkaline Phosphatase CK-MB (CK-2) CK-MB (CK-2) Rel Index Troponin T Total Protein Albumin Cholesterol LDL Cholesterol Direct HDL Cholesterol Urine WBC (Auto) 01/21/18 01/21/18 01/21/18 17:58 18:35 18:45 RBC Hgb Hct MCV MCH RDW Plt Count Seg Neuts % (Manual) Lymphocytes % (Manual) Seg Neutrophils # Man Lymphocytes # (Manual) PT INR ABG pH ABG pO2 ABG HCO3 ABG O2 Saturation ABG Base Excess ABG Hemoglobin VBG pH Oxyhemoglobin Sodium Potassium Chloride Carbon Dioxide BUN Glucose 363 H POC Glucose 41 L 45 L Lactic Acid Calcium Magnesium Total Bilirubin Direct Bilirubin AST ALT Alkaline Phosphatase CK-MB (CK-2) CK-MB (CK-2) Rel Index Troponin T Total Protein Albumin Cholesterol LDL Cholesterol Direct HDL Cholesterol Urine WBC (Auto) 01/21/18 01/22/18 01/22/18 21:55 03:11 11:12 RBC Hgb Hct MCV MCH RDW Plt Count Seg Neuts % (Manual) Lymphocytes % (Manual) Seg Neutrophils # Man Lymphocytes # (Manual) PT INR ABG pH ABG pO2 ABG HCO3 ABG O2 Saturation ABG Base Excess ABG Hemoglobin VBG pH Oxyhemoglobin Sodium Potassium Chloride Carbon Dioxide BUN Glucose POC Glucose 245 H 247 H 199 H Lactic Acid Calcium Magnesium Total Bilirubin Direct Bilirubin AST ALT Alkaline Phosphatase CK-MB (CK-2) CK-MB (CK-2) Rel Index Troponin T Total Protein Albumin Cholesterol LDL Cholesterol Direct HDL Cholesterol Urine WBC (Auto) 01/22/18 01/22/18 01/22/18 13:57 18:06 21:12 RBC Hgb Hct MCV MCH RDW Plt Count Seg Neuts % (Manual) Lymphocytes % (Manual) Seg Neutrophils # Man Lymphocytes # (Manual) PT INR ABG pH ABG pO2 ABG HCO3 ABG O2 Saturation ABG Base Excess ABG Hemoglobin VBG pH Oxyhemoglobin Sodium Potassium Chloride Carbon Dioxide BUN Glucose POC Glucose 139 H 221 H 160 H Lactic Acid Calcium Magnesium Total Bilirubin Direct Bilirubin AST ALT Alkaline Phosphatase CK-MB (CK-2) CK-MB (CK-2) Rel Index Troponin T Total Protein Albumin Cholesterol LDL Cholesterol Direct HDL Cholesterol Urine WBC (Auto) 01/23/18 01/23/18 01/23/18 09:43 09:49 09:53 RBC Hgb Hct MCV MCH RDW Plt Count Seg Neuts % (Manual) Lymphocytes % (Manual) Seg Neutrophils # Man Lymphocytes # (Manual) PT INR ABG pH ABG pO2 ABG HCO3 ABG O2 Saturation ABG Base Excess ABG Hemoglobin VBG pH Oxyhemoglobin Sodium Potassium Chloride 107.3 H Carbon Dioxide 6 L* D BUN 25 H Glucose 27 L* POC Glucose < 40 L 53 L Lactic Acid Calcium 6.0 L Magnesium Total Bilirubin Direct Bilirubin AST ALT Alkaline Phosphatase CK-MB (CK-2) CK-MB (CK-2) Rel Index Troponin T Total Protein Albumin Cholesterol LDL Cholesterol Direct HDL Cholesterol Urine WBC (Auto) 01/23/18 10:31 RBC Hgb Hct MCV MCH RDW Plt Count Seg Neuts % (Manual) Lymphocytes % (Manual) Seg Neutrophils # Man Lymphocytes # (Manual) PT INR ABG pH ABG pO2 ABG HCO3 ABG O2 Saturation ABG Base Excess ABG Hemoglobin VBG pH Oxyhemoglobin Sodium Potassium Chloride Carbon Dioxide BUN Glucose POC Glucose 119 H Lactic Acid Calcium Magnesium Total Bilirubin Direct Bilirubin AST ALT Alkaline Phosphatase CK-MB (CK-2) CK-MB (CK-2) Rel Index Troponin T Total Protein Albumin Cholesterol LDL Cholesterol Direct HDL Cholesterol Urine WBC (Auto)
[2018-01-23 15:00] VITALS: BP 144/33
[2018-01-23] MEDS: Vasostrict 20 UNIT in NACL 0.9% 100 ML IV SCH (15:28)
[2018-01-23] MEDS: SODIUM CHLORIDE FLUSH SYRINGE 10 ML IV SCH ×2 (15:29→22:45)
--- NOTE | 2018-01-23 18:07 | Progress Note ---
Assessment and Plan Assessment and plan: 82 YO Female Penitentiary Resident with HTN, DM, HLD, SIADH, presents to ED for evaluation. Pt is stuporous on exam and unable to provide history. Pt history taken from medical record, ED Staff, and EMS. As per EMS, the patient was found to have agonal breathing in the field, as was transported to [facility] for further care and evaluation. Pt seen and evaluated in ED and found to be hypotensive with systolic BP in the 40's, secondary to Septic shock. Pt also found to have evidence of early shock liver, as well as elevated troponin which is suspected secondary to hypoperfusion. Pt found to be in acute respiratory failure. Pt intubated and placed on vent support. No further history is provided. Pt admitted to ICU. Pulmonary team consulted. Pt found to have poor prognosis. Septic shock - Patient is on pressors, IV azithromycin, and vancomycin Acute hypoxic respiratory failure, patient was not able to take care of her otherwise - Patient is intubated and on mechanical ventilation - Pulmonary arteries following Acute metabolic encephalopathy - don't know base line Patient has very poor prognosis Disposition - Continue ICU care Patient admitted for septic shock and pressor support max out and no family member was in the room to discuss with the management plan, patient was in alf for the last 20 years and I have discussed with ethics committee and patient is currently AND. The high probability of a clinically significant, sudden or life threatening deterioration of the [CV, neurology, repiratory] system(s) required my full and direct attention, intervention and personal management. The aggregate critical care time was [34] minutes. This time is in addition to time spent performing reported procedures but includes the following: [x] Data Review and interpretation [x] Patient assessment and monitoring of vital signs [x] Documentation [x] Medication orders and management Hypoglycemia - Last blood sugar was 27 and patient was given dextrose and currently on D5W History Interval history: Patient was seen and evaluated this morning, patient was intubated on mechanical ventilation, patient is non-communicative. No family member was in the room to discuss the management plan. I have discussed with ethics committee and decided to make her at [facility] Hospitalist Physical - Physical exam Narrative exam: Patient is intubated and on mechanical ventilation The patient appeared well nourished and normally developed. Vital signs as documented. Head exam is unremarkable. No scleral icterus . Neck is without jugular venous distension, thyromegaly, or carotid bruits. Lungs are clear to auscultation. Cardiac exam reveals regular rate and Rhythm. First and second heart sounds normal. No murmurs, rubs or gallops. Abdominal exam reveals normal bowel sounds, no masses, no organomegaly and no aortic enlargement. Extremities are nonedematous and both femoral and pedal pulses are normal. MEDICAL LABORATORY TECHNICIANS: Patient is comatose. - Constitutional Vitals: Temp Pulse Resp BP Pulse Ox 99.0 F 136 H 18 144/33 25 L 01/23/18 16:00 01/23/18 17:46 01/23/18 17:46 01/23/18 14:16 01/23/18 12:46 General appearance: Present: severe distress, disheveled Results - Labs CBC & Chem 7: 01/21/18 05:00 01/23/18 09:43 Labs: Laboratory Last Values WBC 9.8 K/mm3 (4.5-11.0) 01/21/18 05:00 RBC 3.19 M/mm3 (3.65-5.03) L 01/21/18 05:00 Hgb 10.6 gm/dl (10.1-14.3) 01/21/18 05:00 Hct 31.6 % (30.3-42.9) D 01/21/18 05:00 MCV 99 fl (79-97) H 01/21/18 05:00 MCH 33 pg (28-32) H 01/21/18 05:00 MCHC 34 % (30-34) 01/21/18 05:00 RDW 17.5 % (13.2-15.2) H 01/21/18 05:00 Plt Count 133 K/mm3 (140-440) L 01/21/18 05:00 Lymph % (Auto) Laundry Machine Tender 01/20/18 04:02 [place] % (Auto) Laundry Machine Tender 01/20/18 04:02 Eos % (Auto) Laundry Machine Tender 01/20/18 04:02 Baso % (Auto) Laundry Machine Tender 01/20/18 04:02 Lymph # Laundry Machine Tender 01/20/18 04:02 [place] # Laundry Machine Tender 01/20/18 04:02 Eos # Laundry Machine Tender 01/20/18 04:02 Baso # Laundry Machine Tender 01/20/18 04:02 Add Manual Diff Complete 01/21/18 05:00 Total Counted 100 01/21/18 05:00 Seg Neutrophils % Laundry Machine Tender 01/20/18 04:02 Seg Neuts % (Manual) 84.0 % (40.0-70.0) H 01/21/18 05:00 Band Neutrophils % 6.0 % 01/21/18 05:00 Lymphocytes % (Manual) 8.0 % (13.4-35.0) L 01/21/18 05:00 Reactive Lymphs % (Man) 0 % 01/21/18 05:00 Monocytes % (Manual) 2.0 % (0.0-7.3) 01/21/18 05:00 Eosinophils % (Manual) 0 % (0.0-4.3) 01/21/18 05:00 Basophils % (Manual) 0 % (0.0-1.8) 01/21/18 05:00 Metamyelocytes % 0 % 01/21/18 05:00 Myelocytes % 0 % 01/21/18 05:00 Promyelocytes % 0 % 01/21/18 05:00 Blast Cells % 0 % 01/21/18 05:00 Nucleated RBC % Not Reportable 01/21/18 05:00 Seg Neutrophils # Laundry Machine Tender 01/20/18 04:02 Seg Neutrophils # Man 8.2 K/mm3 (1.8-7.7) H 01/21/18 05:00 Band Neutrophils # 0.6 K/mm3 01/21/18 05:00 Lymphocytes # (Manual) 0.8 K/mm3 (1.2-5.4) L 01/21/18 05:00 Abs React Lymphs (Man) 0.0 K/mm3 01/21/18 05:00 Monocytes # (Manual) 0.2 K/mm3 (0.0-0.8) 01/21/18 05:00 Eosinophils # (Manual) 0.0 K/mm3 (0.0-0.4) 01/21/18 05:00 Basophils # (Manual) 0.0 K/mm3 (0.0-0.1) 01/21/18 05:00 Metamyelocytes # 0.0 K/mm3 01/21/18 05:00 Myelocytes # 0.0 K/mm3 01/21/18 05:00 Promyelocytes # 0.0 K/mm3 01/21/18 05:00 Blast Cells # 0.0 K/mm3 01/21/18 05:00 WBC Morphology Not Reportable 01/21/18 05:00 Hypersegmented Neuts Not Reportable 01/21/18 05:00 Hyposegmented Neuts Not Reportable 01/21/18 05:00 Hypogranular Neuts Not Reportable 01/21/18 05:00 Smudge Cells Not Reportable 01/21/18 05:00 Toxic Granulation Not Reportable 01/21/18 05:00 Toxic Vacuolation Not Reportable 01/21/18 05:00 Dohle Bodies Not Reportable 01/21/18 05:00 Pelger-Huet Anomaly Not Reportable 01/21/18 05:00 Toribio Rods Not Reportable 01/21/18 05:00 Platelet Estimate Consistent w auto 01/21/18 05:00 Clumped Platelets Not Reportable 01/21/18 05:00 Plt Clumps, EDTA Not Reportable 01/21/18 05:00 Large Platelets Not Reportable 01/21/18 05:00 Giant Platelets Not Reportable 01/21/18 05:00 Platelet Satelliting Not Reportable 01/21/18 05:00 Plt Morphology Comment Not Reportable 01/21/18 05:00 RBC Morphology Normal 01/21/18 05:00 Dimorphic RBCs Not Reportable 01/21/18 05:00 Polychromasia Not Reportable 01/21/18 05:00 Hypochromasia Not Reportable 01/21/18 05:00 Poikilocytosis Not Reportable 01/21/18 05:00 Anisocytosis Not Reportable 01/21/18 05:00 Microcytosis Not Reportable 01/21/18 05:00 Macrocytosis Not Reportable 01/21/18 05:00 Spherocytes Not Reportable 01/21/18 05:00 Pappenheimer Bodies Not Reportable 01/21/18 05:00 Sickle Cells Not Reportable 01/21/18 05:00 Target Cells Not Reportable 01/21/18 05:00 Tear Drop Cells Not Reportable 01/21/18 05:00 Ovalocytes Not Reportable 01/21/18 05:00 Helmet Cells Not Reportable 01/21/18 05:00 [place] Bodies Not Reportable 01/21/18 05:00 [place] Rings Not Reportable 01/21/18 05:00 Julian Cells Not Reportable 01/21/18 05:00 Bite Cells Not Reportable 01/21/18 05:00 Crenated Cell Not Reportable 01/21/18 05:00 Elliptocytes Not Reportable 01/21/18 05:00 Acanthocytes (Spur) Not Reportable 01/21/18 05:00 Rouleaux Not Reportable 01/21/18 05:00 Hemoglobin C Crystals Not Reportable 01/21/18 05:00 Schistocytes Not Reportable 01/21/18 05:00 Malaria parasites Not Reportable 01/21/18 05:00 Fran Bodies Not Reportable 01/21/18 05:00 Hem Pathologist Commnt No 01/21/18 05:00 PT 21.9 Sec. (12.2-14.9) H 01/21/18 10:45 INR 1.79 (0.87-1.13) H 01/21/18 10:45 APTT 35.3 Sec. (24.2-36.6) 01/21/18 10:45 ABG pH 7.443 pH Units (7.350-7.450) 01/21/18 10:20 ABG pCO2 23.4 mm Hg 01/21/18 10:20 ABG pO2 58.6 mm Hg (80.0-90.0) L 01/21/18 10:20 ABG HCO3 15.6 mmol/L (20.0-26.0) L 01/21/18 10:20 ABG O2 Saturation 91.4 % (95.0-99.0) L 01/21/18 10:20 ABG O2 Content 14.7 (0.0-44) 01/21/18 10:20 ABG Base Excess -6.8 mmol/L (-2.0-3.0) L 01/21/18 10:20 ABG Hemoglobin 11.6 gm/dl (12.0-16.0) L 01/21/18 10:20 ABG Carboxyhemoglobin 1.1 % (0.0-5.0) 01/21/18 10:20 ABG Methemoglobin 0.5 % (0.0-1.5) 01/21/18 10:20 VBG pH 7.447 (7.320-7.420) H 01/19/18 17:40 Oxyhemoglobin 89.9 % (95.0-99.0) L 01/21/18 10:20 FiO2 30 % 01/21/18 10:20 Sodium 141 mmol/L (137-145) 01/23/18 09:43 Potassium 4.9 mmol/L (3.6-5.0) D 01/23/18 09:43 Chloride 107.3 mmol/L (98-107) H 01/23/18 09:43 Carbon Dioxide 6 mmol/L (22-30) L* D 01/23/18 09:43 Anion Gap 33 mmol/L 01/23/18 09:43 BUN 25 mg/dL (7-17) H 01/23/18 09:43 Creatinine 0.9 mg/dL (0.7-1.2) 01/23/18 09:43 Estimated GFR 48 ml/min 01/23/18 09:43 BUN/Creatinine Ratio 23 % 01/23/18 09:43 Glucose 27 mg/dL (65-100) L* 01/23/18 09:43 POC Glucose 119 (70-105) H 01/23/18 10:31 Lactic Acid 3.70 mmol/L (0.7-2.0) H* 01/21/18 07:15 Calcium 6.0 mg/dL (8.4-10.2) L 01/23/18 09:43 Magnesium 0.20 mg/dL (1.7-2.3) L* 01/19/18 Unknown Total Bilirubin 1.20 mg/dL (0.1-1.2) 01/21/18 05:00 Direct Bilirubin 0.9 mg/dL (0-0.2) H 01/21/18 05:00 Indirect Bilirubin 0.3 mg/dL 01/21/18 05:00 AST 587 units/L (5-40) H 01/21/18 05:00 ALT 556 units/L (7-56) H 01/21/18 05:00 Alkaline Phosphatase 154 units/L (35-129) H 01/21/18 05:00 Total Creatine Kinase 87 units/L (30-135) 01/19/18 Unknown CK-MB (CK-2) 5.1 ng/mL (0.0-4.0) H 01/19/18 17:40 CK-MB (CK-2) Rel Index 4.9 (0-4) H 01/19/18 17:40 Troponin T 0.187 ng/mL (0.00-0.029) H* 01/19/18 17:40 NT-Pro-B Natriuret Pep 816.0 pg/mL (0-900) 01/19/18 17:40 Total Protein 3.5 g/dL (6.3-8.2) L D 01/21/18 05:00 Albumin 1.5 g/dL (3.9-5) L 01/21/18 05:00 Albumin/Globulin Ratio 0.8 % 01/21/18 05:00 Triglycerides 76 mg/dL (2-149) 01/19/18 17:40 Cholesterol 42 mg/dL (50-199) L 01/19/18 17:40 LDL Cholesterol Direct 5 mg/dL (50-130) L 01/19/18 17:40 HDL Cholesterol 22 mg/dL (40-59) L 01/19/18 17:40 Cholesterol/HDL Ratio 1.90 % 01/19/18 17:40 Urine Color Chasidy (Yellow) 01/19/18 17:55 Urine Turbidity Cloudy (Clear) 01/19/18 17:55 Urine pH 5.0 (5.0-7.0) 01/19/18 17:55 Ur Specific [place] 1.013 (1.003-1.030) 01/19/18 17:55 Urine Protein <15 mg/dl mg/dL (Negative) 01/19/18 17:55 Urine Glucose (UA) Neg mg/dL (Negative) 01/19/18 17:55 Urine Ketones Neg mg/dL (Negative) 01/19/18 17:55 Urine Blood Sm (Negative) 01/19/18 17:55 Urine Nitrite Neg (Negative) 01/19/18 17:55 Urine Bilirubin Neg (Negative) 01/19/18 17:55 Urine Urobilinogen 4.0 mg/dL (<2.0) 01/19/18 17:55 Ur Leukocyte Esterase Mod (Negative) 01/19/18 17:55 Urine WBC (Auto) 44.0 /HPF (0.0-6.0) H 01/19/18 17:55 Urine RBC (Auto) 68.0 /HPF (0.0-6.0) 01/19/18 17:55 U Epithel Cells (Auto) < 1.0 /HPF (0-13.0) 01/19/18 17:55 Urine Bacteria (Auto) 2+ /HPF (Negative) 01/19/18 17:55 Urine WBC Clumps 3+ /HPF 01/19/18 17:55 Hyaline Casts 8 /LPF 01/19/18 17:55 Urine Mucus 2+ /HPF 01/19/18 17:55 Blood Type O POSITIVE 01/19/18 20:57 Antibody Screen Negative 01/19/18 20:57
[2018-01-24] MEDS: Vasostrict 20 UNIT in NACL 0.9% 100 ML IV SCH (01:28)
--- NOTE | 2018-01-24 02:42 | Event Note ---
Date: 01/24/18 Called to pronounce patient Pupils fixed and dilated, normal heart sounds time of 023
--- NOTE | 2018-01-24 07:30 | Death Summary ---
Summary - Providers Date of service: 01/24/18 Consults: 01/19/18 17:33 Consult to Physician [CONS] Stat Comment: Consulting Provider: ASHWIN DILLON Physician Instructions: Reason For Exam: resp failure sirs 01/20/18 01:15 Consult to Wound/ET Nurse [CONS] Stat Reason For Exam: wound eval- multiple wounds on admission 01/20/18 02:43 Speech Therapy Evaluation and Treat [CONS] Routine Reason For Exam: PT. NEW ADDMIT from Rehab facility, unable to obta Attending: ALEX BARDALES MD - summary Date of admission: 01/19/18 20:32 Date of : 01/24/18 Reason for admission: septic shock Significant findings: 82 YO Female Care Home Resident with HTN, DM, HLD, SIADH, presents to ED for evaluation. Pt was stuporous on exam and unable to provide history at admission. Pt history taken from medical record, ED Staff, and EMS. As per EMS, the patient was found to have agonal breathing in the field, as was transported to [facility] for further care and evaluation. Pt seen and evaluated in ED and found to be hypotensive with systolic BP in the 40's, secondary to Septic shock. Pt also found to have evidence of early shock liver, as well as elevated troponin which is suspected secondary to hypoperfusion. Pt found to be in acute respiratory failure. Pt intubated and placed on vent support. No further history is provided. Pt admitted to ICU. Pulmonary team consulted. Septic shock patient was treated with IV antibiotics, fluids, pressors but despite that her blood pressure was dropping and her condition was worsening. I have discussed the case with the reflexologist and ethics committee we make her DNR/DNI. Patient didn't have any family member and was in the assisted for the last 20 years. Acute metabolic encephalopathy Hypoglycemia On 01/24/18 night the patient went into asystole and . pronounced with the micro paleontologist physician Dr Miller - Final diagnosis (1) Septic shock Note: Final diagnosis: (2) Acute respiratory failure Qualifiers: Respiratory failure complication: hypoxia Qualified Code(s): J96.01 - Acute respiratory failure with hypoxia Note: Final diagnosis: (3) Bilateral pleural effusion Note: Final diagnosis: (4) Colitis Note: Final diagnosis: (5) Dehydration Note: Final diagnosis: (6) Encephalopathy Note: Final diagnosis: (7) Essential (primary) hypertension Note: Final diagnosis: (8) History of gastroesophageal reflux (GERD) Note: Final diagnosis: (9) Shock liver Note: Final diagnosis: (10) Transaminasemia Note: Final diagnosis: (11) Type 2 diabetes mellitus without complications Note: Final diagnosis: (12) UTI (urinary tract infection) Qualifiers: Encounter type: initial encounter Note: Final diagnosis:
== END 2018-01-24 04:28 | DRG 870 ==
LOC: ED 16:46 → CC1 20:32
PROVIDERS: ADMIT Internal Medicine; ATTEND Internal Medicine
PROC: 5A1955Z Respiratory Ventilation, Greater than 96 Consecutive Hours (ICD-10-PCS; principal; 2018-01-19)
PROC: 0BH17EZ Insertion of Endotracheal Airway into Trachea, Via Natural or Artificial Opening (ICD-10-PCS; 2018-01-19)
PROC: 4A033R1 Measurement of Arterial Saturation, Peripheral, Percutaneous Approach (ICD-10-PCS; 2018-01-19)
PROC: 05HN33Z Insertion of Infusion Device into Left Internal Jugular Vein, Percutaneous Approach (ICD-10-PCS; 2018-01-19)
DX: A41.9 Sepsis, unspecified organism (principal); K72.01 Acute and subacute hepatic failure with coma; J96.01 Acute respiratory failure with hypoxia; R53.2 Functional quadriplegia; R65.21 Severe sepsis with septic shock; G93.41 Metabolic encephalopathy; K72.00 Acute and subacute hepatic failure without coma; N39.0 Urinary tract infection, site not specified; E22.2 Syndrome of inappropriate secretion of antidiuretic hormone; E11.9 Type 2 diabetes mellitus without complications; I10 Essential (primary) hypertension; E78.00 Pure hypercholesterolemia, unspecified; E87.6 Hypokalemia; E83.42 Hypomagnesemia; Z66 Do not resuscitate; Z79.84 Long term (current) use of oral hypoglycemic drugs; Z88.0 Allergy status to penicillin; Z88.2 Allergy status to sulfonamides; Z88.8 Allergy status to other drugs, medicaments and biological substances; Z79.810 Long term (current) use of selective estrogen receptor modulators (SERMs)
CPT/HCPCS: 36415; 36600; 71045; 80048; 80053; 80061; 80074; 81001; 82140; 82550; 82553; 82803; 82805; 82947; 82962; 83735; 83880; 84484; 85007; 85025; 85027; 85610; 85730; 86850; 86900; 86901; 87040; 87070; 87076; 87086; 87186; 87205; 93005; 93010; 94002; 94003; 96365; 96367; 96375; J0692; J1644; J1720; J3010; J3370; J3475; J3480; J7030; J7040; J7050; J7070